=== PATIENT | male | born 1965 | race American Indian/Alaskan Native ===

== ENCOUNTER 2019-01-05 16:29 | Emergency (ER) | payer SELFPAY ==
[2019-01-05 16:36] VITALS: BP 147/83
[2019-01-05] MEDS ORDERED: BOOSTRIX IM ONE (16:47)
--- NOTE | 2019-01-05 16:47 | Emergency Department Report ---
Blank Doc - Documentation Documentation: 53-year-old male that presents with left tib-fib abrasions. Unsure about teta nus vaccines. This initial assessment/diagnostic orders/clinical plan/treatment(s) is/are subject to change based on patient's health status, clinical progression and re- assessment by fellow clinical providers in the ED. Further treatment and workup at subsequent clinical providers discretion. Patient/guardians urged not to elope from the ED as their condition may be serious if not clinically assessed and managed. Initial orders include: 1- Patient sent to [facility] for further evaluation and treatment 2- tetanus 3- xrays
[2019-01-05] MEDS ORDERED: PERCOCET 5/325 PO ONE (17:43)
--- NOTE | 2019-01-05 17:59 | XRay Report ---
LEFT FOOT 3 VIEWS INDICATION: pain. Injury on Thursday COMPARISON: No relevant prior imaging study available. FINDINGS: There are obliquely oriented fracture through the distal shafts of the second, third, fourth, and fif th metatarsals with mild displacement/angulation. There appear to be subtle fractures in the proximal shafts of the third and fourth metatarsals as well. No additional fractures are identified. IMPRESSION: 1. Second-fifth metatarsal fractures as above. AP AND LATERAL VIEWS LEFT TIBIA AND FIBULA INDICATION: pain. Injury on Thursday COMPARISON: No relevant prior imaging study available. FINDINGS: No acute, displaced fracture or dislocation is seen. No focal soft tissue swelling. IMPRESSION: 1. No acute findings. Signer Name: Mj Brown MD Signed: 01/05/2019 5:55 PM Workstation Name: [id number]
--- NOTE | 2019-01-05 18:17 | Emergency Department Report ---
ED Back Pain/Injury HPI - General Chief Complaint: Extremity Injury, Lower Stated Complaint: INJURED LEG Time Seen by Provider: 01/05/19 16:46 Source: patient Limitations: No Limitations - History of Present Illness Initial Comments: 53 YO AA MALE COMES TO ER WITH L FOOT PAIN. HE STATES SOMETHING HIT HIS FOOT. THIS OCCURRED SEVERAL DAYS AGO. AMBULATORY TO ER. CO OF MINIMAL PAIN IT WAS THE SWELLING ACROSS THE FOOT THAT WORRIED HIM -: days(s) Similar Symptoms Previously: No Severity: mild Improves With: immobilization Worsens With: movement Associated Symptoms: denies other symptoms - Related Data Previous Rx's Medication Instructions Recorded Last Taken Type Ibuprofen [Motrin] 800 mg PO Q8HR PRN #30 tablet 01/05/19 Unknown Rx traMADol [Ultram] 50 mg PO Q6HR PRN #10 tablet 01/05/19 Unknown Rx Allergies Allergy/AdvReac Type Severity Reaction Status Date / Time No Known Allergies Allergy Unverified 01/05/19 16:31 ED Review of Systems ROS: Stated complaint: INJURED LEG Other details as noted in HPI Comment: All other systems reviewed and negative ED Past Medical Hx - Past Medical History Medical history: no medical history Surgical history: no surgical history ED Back Pain Physical Exam - Exam General: Vital signs noted. No distress. Alert and acting appropriately. Back/Abdomen: No Abdominal Tenderness, No Perithoracic Tenderness, No Perilumbar Tenderness, No Sacroiliac Tenderness, No Flank Tenderness, No Straight Leg Raise Pain Neuro: Yes Normal Sensation, Yes Normal DTR's, Yes Normal Gait, No Motor Weakness ED Course Vital Signs 01/05/19 16:33 Temperature 98.5 F Pulse Rate 108 H Respiratory 16 Rate Blood Pressure 147/83 O2 Sat by Pulse 98 Oximetry Ed Back Pain Tests - Tests Tests: Abnormal X Rays ED Medical Decision Making - Radiology Data Radiology results: report reviewed, image reviewed - Medical Decision Making XRAY NOTED OCL POST SHORT LEG APPLIED NEUROVASC INTACT BEFORE AND AFTER MIN SWELLING ACROSS TOP OF FOOT ECCHYMOSIS AT BASE OF TOES; BUT CAN MOVE THEM; IN FACT PT AMBULATORY TO ER DP PLUS 2 CRUTCHES MEDICATED FOR PAIN DC HOME WITH ORTHO FOLLOW UP Vital Signs 01/05/19 16:33 Temperature 98.5 F Pulse Rate 108 H Respiratory 16 Rate Blood Pressure 147/83 O2 Sat by Pulse 98 Oximetry - Differential Diagnosis RO FX Critical care attestation.: If time is entered above; I have spent that time in minutes in the direct care of this critically ill patient, excluding procedure time. ED Disposition Clinical Impression: Fractured metatarsal bone, Contusion Disposition: TO HOME OR SELFCARE Is pt being admited?: No Does the pt Need Aspirin: No Condition: Stable Instructions: Foot Fracture in Adults (ED) Additional Instructions: LEAVE SPLINT ON CRUTCHES UNTIL SEEN BY ORTHO FOLLOW UP WITH DR MANCERA WILBER REFERRAL BELOW ICE REST ELEVATED Prescriptions: Ibuprofen [Motrin] 800 mg PO Q8HR PRN #30 tablet PRN Reason: Pain, Moderate (4-6) traMADol [Ultram] 50 mg PO Q6HR PRN #10 tablet PRN Reason: Pain Referrals: ROSEMARY MANCERA MD [Staff Physician] - 3-5 Days Time of Disposition: 18:15
== END 2019-01-05 19:12 | disposition home or self-care (01) ==
LOC: ED 16:29
DX: S92.322A Displaced fracture of second metatarsal bone, left foot, initial encounter for closed fracture (principal); S92.352A Displaced fracture of fifth metatarsal bone, left foot, initial encounter for closed fracture; S90.122A Contusion of left lesser toe(s) without damage to nail, initial encounter; X58.XXXA Exposure to other specified factors, initial encounter; Y93.89 Activity, other specified; Y92.89 Other specified places as the place of occurrence of the external cause; Y99.8 Other external cause status
CPT/HCPCS: 90471; 90715

== ENCOUNTER 2020-08-28 08:38 | Inpatient (IN) | payer OTHER ==
--- NOTE | 2020-08-28 11:25 | XRay Report ---
RIGHT FOOT 3 VIEWS INDICATION / CLINICAL INFORMATION: foot wound worsening. COMPARISON: None available. FINDINGS: Diffuse vascular calcification is present. Mild degenerative changes seen in the first metatarsophala ngeal joint. No other significant skeletal abnormality. No definite evidence of osteomyelitis on this exam Signer Name: Harish Nunn MD FACJami Signed: 08/28/2020 11:20 AM Workstation Name: [email or web address]
[2020-08-28 13:23] LABS: Basophils % (Auto) 0.3 % (0.0-1.8); Eosinophils # (Auto) 0.2 K/mm3 (0.0-0.4); Eosinophils % (Auto) 3.7 % (0.0-4.3); Hematocrit 35.8 % (35.5-45.6); Lymphocytes # (Auto) 1.6 K/mm3 (1.2-5.4); Lymphocytes % (Auto) 25.9 % (13.4-35.0); Mean Corpuscular HGB Conc 34 % (32-34); Mean Corpuscular Volume 85 fl (84-94); Monocytes # (Auto) 0.6 K/mm3 (0.0-0.8); Monocytes % (Auto) 8.9 % (0.0-7.3); Platelet Count 275 K/mm3 (140-440); Red Blood Count 4.19 M/mm3 (3.65-5.03); Red Cell Distribution Width 13.6 % (13.2-15.2)
[2020-08-28] MEDS ORDERED: CLINDAMYCIN 600 MG/50 mL 600 MG/50 ML BAG IV ONE ×2 (13:23→17:00)
[2020-08-28] MEDS ORDERED: LACTATED RINGERS 1,000 ML IV ONE (13:23)
[2020-08-28] MEDS ORDERED: MORPHINE 4 MG/1 ML INJ IV ONE ×2 (13:23→17:00)
--- NOTE | 2020-08-28 13:24 | Emergency Department Report ---
ED General Adult HPI - General Chief complaint: Wound/Laceration Stated complaint: RIGHT FOOT INJURY PUI?: No Time Seen by Provider: 08/28/20 13:09 Source: patient, RN notes reviewed, old records reviewed Mode of arrival: Ambulatory Limitations: Physical Limitation - History of Present Illness Initial comments: The patient was evaluated in the emergency department for symptoms described in the history of present illness. He/she was evaluated in the context of the global COVID-19 pandemic, which necessitated consideration that the patient might be at risk for infection with the virus that causes COVID-19. Institutional protocols and algorithms that pertain to the evaluation of patients at risk for COVID-19 are in a state of rapid change based on information released by regulatory bodies including the CDC and federal and state organizations. These policies and algorithms were followed during the patient's care in the emergency department. Please note that these policies, procedures and recommendations changed on a rapid basis. The patient is a 54-year-old gentleman. His past history includes poorly controlled diabetes, hemoglobin A1c was 10.9 in 2019. The patient was recently seen at this hospital for presumed diabetic foot infection in the beginning of the month. He was offered admission, which he declined, and was discharged with Bactrim and Levaquin. He presents to the ER with a complaint of painful nontraumatic blackened toe, on the right foot. The patient denies headache, neck pain, chest pain, abdominal pain, shortness of breath, fevers and chills. He does have some throbbing aching pain on the dorsal aspect of the right foot, as well as a blackened right toe. He denies additional injuries and complaints. He feels like his toe has been discolored for a few days to about a week and a half. It is constant, does not radiate anywhere, and does not have exacerbating or relieving factors. -: days(s), week(s) Location: right, lower extremity (Right fourth toe) Severity scale (0 -10): 10 Quality: other Consistency: other Improves with: other Worsens with: other Associated Symptoms: other - Related Data Previous Rx's Medication Instructions Recorded Last Taken Type Ibuprofen [Motrin] 800 mg PO Q8HR PRN #30 tablet 01/05/19 Unknown Rx traMADoL [Ultram] 50 mg PO Q6HR PRN #10 tablet 01/05/19 Unknown Rx Ibuprofen [Motrin 800 MG tab] 800 mg PO Q8HR PRN #20 tablet 08/14/20 Unknown Rx Sulfamethoxazole/Trimethoprim 1 each PO BID #20 tablet 08/14/20 Unknown Rx [Bactrim DS TAB] levoFLOXacin [Levaquin] 750 mg PO QDAY #10 tablet 08/14/20 Unknown Rx oxyCODONE /ACETAMINOPHEN [Percocet 1 tab PO Q6HR PRN #12 tablet 08/14/20 Unknown Rx 5/325] Allergies Allergy/AdvReac Type Severity Reaction Status Date / Time No Known Allergies Allergy Unverified 01/05/19 16:31 ED Review of Systems ROS: Stated complaint: RIGHT FOOT INJURY Other details as noted in HPI Constitutional: denies: fever Eyes: denies: eye discharge ENT: denies: epistaxis Respiratory: denies: cough Cardiovascular: denies: chest pain Gastrointestinal: denies: abdominal pain Musculoskeletal: joint swelling, arthralgia, myalgia Skin: rash, lesions, change in color Neurological: denies: weakness Psychiatric: anxiety Hematological/Lymphatic: denies: easy bleeding ED Past Medical Hx - Past Medical History Hx Diabetes: Yes - Surgical History Past Surgical History?: No - Social History Smoking Status: Current Some Day Smoker Substance Use Type: None (Denies illicit drug use) - Medications Home Medications: Home Medications Medication Instructions Recorded Confirmed Last Taken Type Ibuprofen [Motrin] 800 mg PO Q8HR PRN #30 tablet 01/05/19 Unknown Rx traMADoL [Ultram] 50 mg PO Q6HR PRN #10 tablet 01/05/19 Unknown Rx Ibuprofen [Motrin 800 MG tab] 800 mg PO Q8HR PRN #20 tablet 08/14/20 Unknown Rx Sulfamethoxazole/Trimethoprim 1 each PO BID #20 tablet 08/14/20 Unknown Rx [Bactrim DS TAB] levoFLOXacin [Levaquin] 750 mg PO QDAY #10 tablet 08/14/20 Unknown Rx oxyCODONE /ACETAMINOPHEN [Percocet 1 tab PO Q6HR PRN #12 tablet 08/14/20 Unknown Rx 5/325] ED Physical Exam - General Limitations: No Limitations General appearance: alert, anxious - Head Head exam: Present: atraumatic, normocephalic - Eye Eye exam: Present: normal appearance, EOMI. Absent: nystagmus - ENT ENT exam: Present: normal exam, normal orophraynx, mucous membranes moist, normal external ear exam - Neck Neck exam: Present: normal inspection, full ROM. Absent: tenderness, meningismus - Respiratory Respiratory exam: Present: normal lung sounds bilaterally. Absent: respiratory distress, wheezes, rales, rhonchi, stridor, decreased breath sounds - Cardiovascular Cardiovascular Exam: Present: regular rate, normal rhythm, normal heart sounds. Absent: bradycardia, tachycardia, irregular rhythm, systolic murmur, diastolic murmur, rubs, gallop - GI/Abdominal GI/Abdominal exam: Present: soft. Absent: distended, tenderness, guarding, rebound, rigid, pulsatile mass - Rectal Rectal exam: Present: deferred - Extremities Exam Extremities exam: Present: full ROM, tenderness (There is a necrotic and well demarcated right fourth toe, which is circumferentially necrotic. The dorsal aspect of the right foot is minimally tender. The compartments are soft. 1+ dorsalis pedis pulses noted.), other (2+ radial pulses noted in bilateral upper extremities. 1+ dorsalis pedis pulse noted in the left lower extremity. There is no long bony tenderness, and the pelvis is stable.) - Back Exam Back exam: Present: normal inspection. Absent: tenderness, CVA tenderness (R), CVA tenderness (L), paraspinal tenderness, vertebral tenderness - Neurological Exam Neurological exam: Present: alert, normal gait, other (No facial droop. Tongue midline. Extraocular movements intact bilaterally. Facial sensation intact to light touch in V1, V2, V3 distribution bilaterally. 5 and a 5 strength in 4 extremities. Sensation intact to light touch in 4 extremities.) - Psychiatric Psychiatric exam: Present: normal affect, normal mood, anxious - Skin Skin exam: Present: warm ED Course Vital Signs 08/28/20 08/28/20 08/28/20 08:49 12:52 13:00 Temperature 98.4 F Pulse Rate 92 H 71 75 Respiratory 18 19 19 Rate Blood Pressure 130/73 123/72 Blood Pressure 97/64 [Right] O2 Sat by Pulse 98 98 98 Oximetry 08/28/20 08/28/20 08/28/20 13:16 13:30 16:14 Temperature Pulse Rate 73 68 76 Respiratory 17 13 15 Rate Blood Pressure 123/72 127/82 127/82 Blood Pressure [Right] O2 Sat by Pulse 98 100 100 Oximetry 08/28/20 08/28/20 08/28/20 16:16 16:30 16:46 Temperature Pulse Rate 67 66 71 Respiratory 14 15 13 Rate Blood Pressure 127/82 134/75 127/82 Blood Pressure [Right] O2 Sat by Pulse 99 100 98 Oximetry 08/28/20 08/28/20 08/28/20 17:00 17:16 17:30 Temperature Pulse Rate 70 84 107 H Respiratory 14 18 20 Rate Blood Pressure 123/73 123/73 141/72 Blood Pressure [Right] O2 Sat by Pulse 99 99 99 Oximetry 08/28/20 08/28/20 17:46 18:00 Temperature Pulse Rate 89 81 Respiratory 21 18 Rate Blood Pressure 141/72 109/55 Blood Pressure [Right] O2 Sat by Pulse 99 99 Oximetry - Consultations Consultation #1: 08/28/20 18:27 Discussed history, physical, pertinent imaging studies with vascular surgeon on- call, Dr. Pagan. His group will follow in consultation and make further recommendations. It is advised that systemic anticoagulation be withheld at this time ED Medical Decision Making - Lab Data Result diagrams: 08/28/20 13:10 08/28/20 13:10 Vital Signs 08/28/20 08/28/20 08:49 12:52 Temperature 98.4 F Pulse Rate 92 H 71 Respiratory 18 19 Rate Blood Pressure 130/73 Blood Pressure 97/64 [Right] O2 Sat by Pulse 98 98 Oximetry Lab Results 08/28/20 08/28/20 Range/Units 13:10 13:10 WBC 6.3 (4.5-11.0) K/mm3 RBC 4.19 (3.65-5.03) M/mm3 Hgb 12.0 (11.8-15.2) gm/dl Hct 35.8 (35.5-45.6) % MCV 85 (84-94) fl MCH 29 (28-32) pg MCHC 34 (32-34) % RDW 13.6 (13.2-15.2) % Plt Count 275 (140-440) K/mm3 Lymph % (Auto) 25.9 (13.4-35.0) % Lamb % (Auto) 8.9 H (0.0-7.3) % Eos % (Auto) 3.7 (0.0-4.3) % Baso % (Auto) 0.3 (0.0-1.8) % Lymph # (Auto) 1.6 (1.2-5.4) K/mm3 Lamb # (Auto) 0.6 (0.0-0.8) K/mm3 Eos # (Auto) 0.2 (0.0-0.4) K/mm3 Baso # (Auto) 0.0 (0.0-0.1) K/mm3 Seg Neutrophils % 61.2 (40.0-70.0) % Seg Neutrophils # 3.8 (1.8-7.7) K/mm3 Sodium 135 L (137-145) mmol/L Potassium 4.3 (3.6-5.0) mmol/L Chloride 99.3 (98-107) mmol/L Carbon Dioxide 27 (22-30) mmol/L Anion Gap 13 mmol/L BUN 17 (9-20) mg/dL Creatinine 1.0 (0.8-1.3) mg/dL Estimated GFR > 60 ml/min BUN/Creatinine Ratio 17 % Glucose 233 H (75-100) mg/dL Calcium 9.1 (8.4-10.2) mg/dL Total Bilirubin 0.30 (0.1-1.2) mg/dL AST 13 (5-40) units/L ALT 13 (7-56) units/L Alkaline Phosphatase 101 (35-129) units/L Total Protein 7.1 (6.3-8.2) g/dL Albumin 3.9 (3.9-5) g/dL Albumin/Globulin Ratio 1.2 % - Radiology Data Radiology results: pending, report reviewed, image reviewed RIGHT FOOT 3 VIEWS INDICATION / CLINICAL INFORMATION: foot wound worsening. COMPARISON: None available. FINDINGS: Diffuse vascular calcification is present. Mild degenerative changes seen in the first metatarsophalangeal joint. No other significant skeletal abnormality. No definite evidence of osteomyelitis on this exam Signer Name: Harish Nunn MD FACR Signed: 08/28/2020 10:20 AM Workstation Name: [id number] Right foot-3 views INDICATION: pain, swelling, diabetic. COMPARISON: None. IMPRESSION: No acute osseous abnormality or bone destruction to suggest osteomyelitis. No focal soft tissue wound, subcutaneous gas, or focal area of swelling. Normal alignment. Monckeberg-type vascular calcifications are present typical of diabetes. Signer Name: Jose Price MD Signed: 08/13/2020 8:50 PM Workstation Name: [id number] [address] [address] Vascular Lab Report Signed Patient: VALE BAUER MR#: [id number] : 1965 Acct:[id number] Age/Sex: 54 / M ADM Date: 08/28/20 Loc: 3A A379-[address]: MIGNON LAZCANO MD Ordering Physician: ELIE VELAZQUEZ MD Date of Service: 08/28/20 Procedure(s): VL arterial duplex LE RT Accession Number(s): [id number] cc: ELIE VELAZQUEZ MD DUPLEX DOPPLER LOWER EXTREMITY ARTERIAL, RIGHT INDICATION: right toe gangrene. TECHNIQUE: Arterial duplex examination of both lower extremities performed using B-mode, color flow and spectral Doppler assessment. FINDINGS: RIGHT: Common Femoral Artery: PSV 96.2 cm/sec. Triphasic waveform. Proximal SFA: PSV 71.7 cm/sec. Triphasic waveform. Mid SFA: PSV 83.9 cm/sec. Triphasic waveform. Distal SFA: PSV 83.9 cm/sec. Triphasic waveform. Popliteal artery: PSV 99.8 cm/sec. Triphasic waveform. Posterior tibial artery: PSV 37.6 cm/sec. Biphasic waveform. Dorsalis Pedis Artery: Occluded Additional findings: There is questionable incidental nonocclusive likely chronic DVT along the mid portion of the femoral vein. IMPRESSION: 1. Occlusion of the right dorsalis pedis artery without other signi ficant abnormalities of the right lower 70 arteries. 2. Likely chronic nonocclusive DVT involving the femoral vein. Signer Name: Andrés Solis MD Signed: 08/28/2020 5:54 PM Workstation Name: [email or web address] Transcribed By: [place] Dictated By: Andrés Solis MD Electronically Authenticated By: Andrés law MD Signed Date/Time: 08/28/201753 DD/ [address] [address] Vascular Lab Report Signed Patient: VALE BAUER MR#: [id number] : 1965 Acct:[id number] Age/Sex: 54 / M ADM Date: 08/28/20 Loc: 3A A379-[address]: MIGNON LAZCANO MD Ordering Physician: ELIE VELAZQUEZ MD Date of Service: 08/28/20 Procedure(s): VL arterial duplex LE RT Accession Number(s): [id number] cc: ELIE VELAZQUEZ MD DUPLEX DOPPLER LOWER EXTREMITY ARTERIAL, RIGHT INDICATION: right toe gangrene. TECHNIQUE: Arterial duplex examination of both lower extremities performed using B-mode, color flow and spectral Doppler assessment. FINDINGS: RIGHT: Common Femoral Artery: PSV 96.2 cm/sec. Triphasic waveform. Proximal SFA: PSV 71.7 cm/sec. Triphasic waveform. Mid SFA: PSV 83.9 cm/sec. Triphasic waveform. Distal SFA: PSV 83.9 cm/sec. Triphasic waveform. Popliteal artery: PSV 99.8 cm/sec. Triphasic waveform. Posterior tibial artery: PSV 37.6 cm/sec. Biphasic waveform. Dorsalis Pedis Artery: Occluded Additional findings: There is questionable incidental nonocclusive likely chronic DVT along the mid portion of the femoral vein. IMPRESSION: 1. Occlusion of the right dorsalis pedis artery without other significant abnormalities of the right lower 70 arteries. 2. Likely chronic nonocclusive DVT involving the femoral vein. Signer Name: Andrés Solis MD Signed: 08/28/2020 5:54 PM Workstation Name: [email or web address] Transcribed By: [place] Dictated By: Andrés Solis MD Electronically Authenticated By: Andrés Solis MD Signed Date/Time: 08/28/20 9394 - Medical Decision Making Differential diagnosis, including but not limited to: Peripheral artery disease, uncontrolled diabetes, dry gangrene, diabetic wound, osteomyelitis Assessment and plan: 54-year-old gentleman, with obvious dry gangrene of the right fourth toe, with clear demarcation, foot is warm, pulses difficult to appreciate, has a hemoglobin A1c of 10.9 in 2019, most likely experiencing wound secondary to poorly controlled diabetes, and presumed peripheral artery disease. Place patient on lunchroom monitor, start IV fluids, and clindamycin for skin and soft tissue coverage. X-ray from today, x-ray from 2 weeks ago reviewed and appreciated, obtain appropriate laboratory studies, lactic acid, and blood cultures. Administer insulin for mild hyperglycemia, admit to the medical service with general surgery to follow in consultation. Patient is amenable to this plan of care. General surgeon, Dr. Finney, will follow in consultation. Hospital physician, Dr. Ita Lazcano to admit to [facility] Critical care attestation.: If time is entered above; I have spent that time in minutes in the direct care of this critically ill patient, excluding procedure time. ED Disposition Clinical Impression: Necrosis of toe, Hyperglycemia, PAD (peripheral artery disease) Disposition: OP ADMIT IP TO THIS HOSP Is pt being admited?: Yes Does the pt Need Aspirin: No Condition: Good
[2020-08-28 13:46] LABS: Alanine Aminotransferase 13 units/L (7-56); Albumin 3.9 g/dL (3.9-5); BUN/Creatinine Ratio 17; Blood Urea Nitrogen 17 mg/dL (9-20); Calcium 9.1 mg/dL (8.4-10.2); Hemolysis Index 2
[2020-08-28] MEDS ORDERED: INSULIN REGULAR, HUMAN 100 UNITS/1 ML IV ONE ×2 (13:48→17:00)
[2020-08-28 17:16] LABS: C-Reactive Protein 0.7 mg/dL (0.00-1.30)
--- NOTE | 2020-08-28 17:59 | Vascular Lab Report ---
DUPLEX DOPPLER LOWER EXTREMITY ARTERIAL, RIGHT INDICATION: right toe gangrene. TECHNIQUE: Arterial duplex examination of both lower extremities performed using B-mode, color flow and spectral Doppler assessment. FINDINGS: RIGHT: Common Femoral Artery: PSV 96.2 cm/sec. Triphasic waveform. Proximal SFA: PSV 71.7 cm/sec. Triphasic waveform. Mid SFA: PSV 83.9 cm/sec. Triphasic waveform. Distal SFA: PSV 83.9 cm/sec. Triphasic waveform. Popliteal artery: PSV 99.8 cm/sec. Triphasic waveform. Posterior tibial artery: PSV 37.6 cm/sec. Biphasic waveform. Dorsalis Pedis Artery: Occluded Additional findings: There is questionable incidental nonocclusive likely chronic DVT along the mid p ortion of the femoral vein. IMPRESSION: 1. Occlusion of the right dorsalis pedis artery without other significant abnormalities of the right lower 70 arteries. 2. Likely chronic nonocclusive DVT involving the femoral vein. Signer Name: Andrés Solis MD Signed: 08/28/2020 5:54 PM Workstation Name[id number]
--- NOTE | 2020-08-28 20:18 | Consultation ---
History of Present Illness Consult date: 08/28/20 - History of present illness History of present illness: 54 year old male presented to ED with right 4th to pain and skin changes to black that had progressed over the last three weeks. Patient believes that it started when he noticed that his toes were pinching in his steel toed boots. Patient has history of peripheral neuropathy in his feet secondary to diabetes and says that his sensation is unchanged. Patient had a Doppler study that showed occlusion of the right dorsalis pedis artery. He was started on a course of antibiotics earlier in the month after being seen at this hospital and he was discharged after refusing admission. Past History Past Medical History: diabetes Past Surgical History: No surgical history Social history: smoking Medications and Allergies Allergies Allergy/AdvReac Type Severity Reaction Status Date / Time No Known Allergies Allergy Unverified 01/05/19 16:31 Home Medications Medication Instructions Recorded Confirmed Last Taken Type Ibuprofen [Motrin] 800 mg PO Q8HR PRN #30 tablet 01/05/19 Unknown Rx traMADoL [Ultram] 50 mg PO Q6HR PRN #10 tablet 01/05/19 Unknown Rx Ibuprofen [Motrin 800 MG tab] 800 mg PO Q8HR PRN #20 tablet 08/14/20 Unknown Rx Sulfamethoxazole/Trimethoprim 1 each PO BID #20 tablet 08/14/20 Unknown Rx [Bactrim DS TAB] levoFLOXacin [Levaquin] 750 mg PO QDAY #10 tablet 08/14/20 Unknown Rx oxyCODONE /ACETAMINOPHEN [Percocet 1 tab PO Q6HR PRN #12 tablet 08/14/20 Unknown Rx 5/325] Review of Systems All systems: negative - Muskuloskeletal right: foot pain Exam Vital Signs Temp Pulse Resp BP Pulse Ox 98.4 F 92 H 18 97/64 98 08/28/20 08:49 08/28/20 08:49 08/28/20 08:49 08/28/20 08:49 08/28/20 08:49 - General physical appearance Positive: well developed, well nourished, no distress, moderate pain - Respiratory Positive: normal expansion, normal respiratory effort - Cardiovascular Heart Sounds: Present: S1 & S2 - Extremities Extremities: abnormal Extremity abnormal: other (right 4th toe black with distinct demarcation and dry gangrene hardening of the entire toe down to the joint. toe is insensate. remainder of foot is warm with slow capillary refill. no palpable pulse) Results - Labs 08/28/20 13:10 08/28/20 13:10 Abnormal lab results 08/28/20 08/28/20 08/28/20 Range/Units 13:10 13:10 15:59 [place] % (Auto) 8.9 H (0.0-7.3) % Sodium 135 L (137-145) mmol/L Glucose 233 H (75-100) mg/dL Hemoglobin A1c 9.1 H (4-6) % Diabetes panel 08/28/20 08/28/20 Range/Units 13:10 15:59 Sodium 135 L (137-145) mmol/L Potassium 4.3 (3.6-5.0) mmol/L Chloride 99.3 (98-107) mmol/L Carbon Dioxide 27 (22-30) mmol/L BUN 17 (9-20) mg/dL Creatinine 1.0 (0.8-1.3) mg/dL Glucose 233 H (75-100) mg/dL Hemoglobin A1c 9.1 H (4-6) % Calcium 9.1 (8.4-10.2) mg/dL AST 13 (5-40) units/L ALT 13 (7-56) units/L Alkaline Phosphatase 101 (35-129) units/L Total Protein 7.1 (6.3-8.2) g/dL Albumin 3.9 (3.9-5) g/dL Calcium panel 08/28/20 Range/Units 13:10 Calcium 9.1 (8.4-10.2) mg/dL Albumin 3.9 (3.9-5) g/dL Pituitary panel 08/28/20 Range/Units 13:10 Sodium 135 L (137-145) mmol/L Potassium 4.3 (3.6-5.0) mmol/L Chloride 99.3 (98-107) mmol/L Carbon Dioxide 27 (22-30) mmol/L BUN 17 (9-20) mg/dL Creatinine 1.0 (0.8-1.3) mg/dL Glucose 233 H (75-100) mg/dL Calcium 9.1 (8.4-10.2) mg/dL Adrenal panel 08/28/20 Range/Units 13:10 Sodium 135 L (137-145) mmol/L Potassium 4.3 (3.6-5.0) mmol/L Chloride 99.3 (98-107) mmol/L Carbon Dioxide 27 (22-30) mmol/L BUN 17 (9-20) mg/dL Creatinine 1.0 (0.8-1.3) mg/dL Glucose 233 H (75-100) mg/dL Calcium 9.1 (8.4-10.2) mg/dL Total Bilirubin 0.30 (0.1-1.2) mg/dL AST 13 (5-40) units/L ALT 13 (7-56) units/L Alkaline Phosphatase 101 (35-129) units/L Total Protein 7.1 (6.3-8.2) g/dL Albumin 3.9 (3.9-5) g/dL Assessment and Plan 54 year old diabetic male with dry gangrene of the right fourth toe. Afebrile and stable. No leukocytosis. Patient has peripheral vascular disease seen on Doppler, and peripheral neuropathy secondary to diabetes. Patient's toe is not salvageable and will likely need to be amputated at some point. I personally do not perform amputations. will consult vascular surgery for assessment of peripheral circulation and evaluation for possible revascularization, and possible amputation.
[2020-08-29] MEDS ORDERED: IBUPROFEN 800 MG TAB PO PRN (01:30)
[2020-08-29] MEDS ORDERED: ACETAMINOPHEN 325 MG TAB PO PRN (01:31)
[2020-08-29] MEDS ORDERED: METOCLOPRAMIDE 10 MG/2 ML INJ IV PRN (01:31)
[2020-08-29] MEDS ORDERED: ONDANSETRON 4 MG/2 ML INJ IV PRN (01:31)
[2020-08-29] MEDS ORDERED: VANCOMYCIN PHARMACY TO DOSE IV SCH (02:00)
[2020-08-29] MEDS: AMPICILLIN/SULBACTA 3GM/100ML 3 GM/100 ML BAG IV SCH ×4 (02:26→17:10)
[2020-08-29] MEDS ORDERED: VANCOMYCIN 1,500 MG in SODIUM CHLORIDE 0.9% 500 ML 500 ML IV ONE (03:05)
[2020-08-29] MEDS: SODIUM CHLORIDE 0.9% 1000 ML 1,000 ML IV SCH ×3 (03:29→22:48)
[2020-08-29] MEDS: oxyCODONE /ACETAMINOPHEN 5-325MG TAB PO PRN ×3 (03:58→20:31)
--- NOTE | 2020-08-29 06:27 | History and Physical Report ---
History of Present Illness Date of examination: 08/28/20 Date of admission: 08/28/20 13:57 Chief complaint: Right foot fourth toe infection x2 weeks History of present illness: 54-year-old -[place] male comes in for right foot infection involving the right fourth toe. Black in color. Patient was recently seen in the emergency room but declined admission. Was discharged on Levaquin and Bactrim. The right fourth toe was worsened and is dark black in color and looked gangrenous the whole fourth toe on the right foot. Pulses are diminished in the right foot. Patient is a smoker and recently 1 month ago. Patient also has uncontrolled diabetes. Noncompliant with medications. No hypertension. Patient has not followed up with any vascular surgeon. His hemoglobin A1c was 10.9 in 2019. No fever or chills. Claudication pain present. - Past Medical History --Diabetes: Yes - Surgical History Past Surgical History?: No - Social History Smoking Status: Current Some Day Smoker Substance Use Type: None (Denies illicit drug use) Family history DM --Review of System ROS: Stated complaint: RIGHT FOOT INJURY Other details as noted in HPI Constitutional: denies: fever Eyes: denies: eye discharge ENT: denies: epistaxis Respiratory: denies: cough Cardiovascular: denies: chest pain Gastrointestinal: denies: abdominal pain Musculoskeletal: joint swelling, arthralgia, myalgia Skin: rash, lesions, change in color Neurological: denies: weakness Psychiatric: anxiety Hematological/Lymphatic: denies: easy bleeding Past History Past Medical History: diabetes Past Surgical History: No surgical history Social history: smoking Medications and Allergies Allergies Allergy/AdvReac Type Severity Reaction Status Date / Time No Known Allergies Allergy Unverified 01/05/19 16:31 Home Medications Medication Instructions Recorded Confirmed Last Taken Type Ibuprofen [Motrin] 800 mg PO Q8HR PRN #30 tablet 01/05/19 Unknown Rx traMADoL [Ultram] 50 mg PO Q6HR PRN #10 tablet 01/05/19 Unknown Rx Ibuprofen [Motrin 800 MG tab] 800 mg PO Q8HR PRN #20 tablet 08/14/20 Unknown Rx Sulfamethoxazole/Trimethoprim 1 each PO BID #20 tablet 08/14/20 Unknown Rx [Bactrim DS TAB] levoFLOXacin [Levaquin] 750 mg PO QDAY #10 tablet 08/14/20 Unknown Rx oxyCODONE /ACETAMINOPHEN [Percocet 1 tab PO Q6HR PRN #12 tablet 08/14/20 Unknown Rx 5/325] Active Meds: Active Medications Acetaminophen (Acetaminophen 325 Mg Tab) 650 mg PO Q4H PRN PRN Reason: Pain MILD(1-3)/Fever >100.5/[place] Famotidine (Famotidine 20 Mg/2 Ml Inj) 20 mg IV BID NOAH Hydromorphone HCl (Hydromorphone 1 Mg/1 Ml Inj) 0.5 mg IV Q3H PRN PRN Reason: Pain , Severe (7-10) Sodium Chloride (Nacl 0.9% 1000 Ml) 1,000 mls @ 75 mls/hr IV DIRECT NOAH Last Admin: 08/29/20 03:29 Dose: 75 mls/hr Documented by: Ampicillin Sodium/Sulbactam Sodium (Unasyn/Ns 3 Gm/100 Ml) 3 gm in 100 mls @ 100 mls/hr IV Q6HR NOAH; Protocol Last Admin: 08/29/20 05:35 Dose: 100 mls/hr Documented by: Vancomycin HCl 1,250 mg/ (Sodium Chloride) 275 mls @ 166.667 mls/hr IV Q12H NOAH Ibuprofen (Ibuprofen 800 Mg Tab) 800 mg PO Q8H PRN PRN Reason: Pain, Moderate (4-6) Insulin Human Lispro (Insulin Lispro 100 Unit/Ml) 0 unit SUB-Q ACHS NOAH; Protocol Metoclopramide HCl (Metoclopramide 10 Mg/2 Ml Inj) 10 mg IV Q6H PRN PRN Reason: Nausea And Vomiting Ondansetron HCl (Ondansetron 4 Mg/2 Ml Inj) 4 mg IV Q8H PRN PRN Reason: Nausea And Vomiting Last Admin: 08/29/20 03:58 Dose: 4 mg Documented by: Oxycodone/Acetaminophen (Oxycodone /Acetaminophen 5-325mg Tab) 1 tab PO Q6H PRN PRN Reason: Pain, Moderate (4-6) Last Admin: 08/29/20 03:58 Dose: 1 tab Documented by: Sodium Chloride (Sodium Chloride 0.9% 10 Ml Flush Syringe) 10 ml IV BID NOAH Sodium Chloride (Sodium Chloride 0.9% 10 Ml Flush Syringe) 10 ml IV PRN PRN PRN Reason: LINE FLUSH Exam - Constitutional Vitals: Temp Pulse Resp BP Pulse Ox 97.8 F 86 20 134/61 98 08/28/20 19:24 08/28/20 19:24 08/28/20 19:24 08/28/20 19:24 08/28/20 19:24 General appearance: Present: no acute distress, well-nourished - EENT Eyes: Present: PERRL ENT: hearing intact, clear oral mucosa - Neck Neck: Present: supple, normal ROM - Respiratory Respiratory effort: normal Respiratory: bilateral: CTA - Cardiovascular Heart rate: 78 Rhythm: regular Heart Sounds: Present: S1 & S2. Absent: rub, click - Extremities Extremities: pulses symmetrical, No edema, abnormal (Right fourth toe is black and gangrenous) Extremity abnormal: other (Right fourth toe is black and gangrenous) Peripheral Pulses: within normal limits - Abdominal General gastrointestinal: Present: soft, non-tender, non-distended, normal bowel sounds Male genitourinary: Present: normal - Integumentary Integumentary: Present: clear, warm, dry - Musculoskeletal Musculoskeletal: gait normal, strength equal bilaterally - Psychiatric Psychiatric: appropriate mood/affect, intact judgment & insight - Neurologic Neurologic: CNII-XII intact, moves all extremities Results - Labs CBC & Chem 7: 08/28/20 13:10 08/28/20 13:10 Labs: Laboratory Last Values WBC 6.3 K/mm3 (4.5-11.0) 08/28/20 13:10 RBC 4.19 M/mm3 (3.65-5.03) 08/28/20 13:10 Hgb 12.0 gm/dl (11.8-15.2) 08/28/20 13:10 Hct 35.8 % (35.5-45.6) 08/28/20 13:10 MCV 85 fl (84-94) 08/28/20 13:10 MCH 29 pg (28-32) 08/28/20 13:10 MCHC 34 % (32-34) 08/28/20 13:10 RDW 13.6 % (13.2-15.2) 08/28/20 13:10 Plt Count 275 K/mm3 (140-440) 08/28/20 13:10 Lymph % (Auto) 25.9 % (13.4-35.0) 08/28/20 13:10 [place] % (Auto) 8.9 % (0.0-7.3) H 08/28/20 13:10 Eos % (Auto) 3.7 % (0.0-4.3) 08/28/20 13:10 Baso % (Auto) 0.3 % (0.0-1.8) 08/28/20 13:10 Lymph # (Auto) 1.6 K/mm3 (1.2-5.4) 08/28/20 13:10 [place] # (Auto) 0.6 K/mm3 (0.0-0.8) 08/28/20 13:10 Eos # (Auto) 0.2 K/mm3 (0.0-0.4) 08/28/20 13:10 Baso # (Auto) 0.0 K/mm3 (0.0-0.1) 08/28/20 13:10 Seg Neutrophils % 61.2 % (40.0-70.0) 08/28/20 13:10 Seg Neutrophils # 3.8 K/mm3 (1.8-7.7) 08/28/20 13:10 ESR 55 mm/Hr (0-20) 08/28/20 15:59 Sodium 135 mmol/L (137-145) L 08/28/20 13:10 Potassium 4.3 mmol/L (3.6-5.0) 08/28/20 13:10 Chloride 99.3 mmol/L (98-107) 08/28/20 13:10 Carbon Dioxide 27 mmol/L (22-30) 08/28/20 13:10 Anion Gap 13 mmol/L 08/28/20 13:10 BUN 17 mg/dL (9-20) 08/28/20 13:10 Creatinine 1.0 mg/dL (0.8-1.3) 08/28/20 13:10 Estimated GFR > 60 ml/min 08/28/20 13:10 BUN/Creatinine Ratio 17 % 08/28/20 13:10 Glucose 233 mg/dL (75-100) H 08/28/20 13:10 POC Glucose 257 mg/dL (70-105) H 08/28/20 22:10 Hemoglobin A1c 9.1 % (4-6) H 08/28/20 15:59 Lactic Acid 1.30 mmol/L (0.7-2.0) 08/28/20 15:59 Calcium 9.1 mg/dL (8.4-10.2) 08/28/20 13:10 Magnesium 2.10 mg/dL (1.7-2.3) 08/28/20 15:59 Total Bilirubin 0.30 mg/dL (0.1-1.2) 08/28/20 13:10 AST 13 units/L (5-40) 08/28/20 13:10 ALT 13 units/L (7-56) 08/28/20 13:10 Alkaline Phosphatase 101 units/L (35-129) 08/28/20 13:10 Total Creatine Kinase 76 units/L (55-170) 08/28/20 15:59 C-Reactive Protein 0.70 mg/dL (0.00-1.30) 08/28/20 15:59 Total Protein 7.1 g/dL (6.3-8.2) 08/28/20 13:10 Albumin 3.9 g/dL (3.9-5) 08/28/20 13:10 Albumin/Globulin Ratio 1.2 % 08/28/20 13:10 Short CBC 08/28/20 Range/Units 13:10 WBC 6.3 (4.5-11.0) K/mm3 Hgb 12.0 (11.8-15.2) gm/dl Hct 35.8 (35.5-45.6) % Plt Count 275 (140-440) K/mm3 BMP 08/28/20 13:10 Sodium 135 L Potassium 4.3 Chloride 99.3 Carbon Dioxide 27 BUN 17 Creatinine 1.0 Glucose 233 H Calcium 9.1 Cardiac Enzymes 08/28/20 Range/Units 15:59 Total Creatine Kinase 76 (55-170) units/L Liver Function 08/28/20 Range/Units 13:10 Total Bilirubin 0.30 (0.1-1.2) mg/dL AST 13 (5-40) units/L ALT 13 (7-56) units/L Alkaline Phosphatase 101 (35-129) units/L Albumin 3.9 (3.9-5) g/dL Microbiology: Microbiology 08/28/20 15:59 Peripheral/Venous Blood Culture - Preliminary Culture in Progress 08/28/20 15:59 Peripheral/Venous Blood Culture - Preliminary Culture in Progress - Imaging and Cardiology Imaging and Cardiology: X-ray of the foot right side Diffuse vascular calcification mild degenerative changes in the first metatarsophalangeal joint. No other significant skeletal abnormality. No definite areas of osteomyelitis on this exam. Duplex scan right lower extremity. Occlusion of the right dorsalis pedis artery without other significant abnormalities of the right lower extremity arteries. Likely chronic non-occlusive DVT involving the femoral vein. Mas/IV: Voiding Method Toilet Assessment and Plan Advance Directives: Yes (Full code) VTE prophylaxis?: Chemical Plan of care discussed with patient/family: Yes - Patient Problems (1) Gangrene of toe of right foot Current Visit: Yes Status: Acute Plan to address problem: Soap to the right foot is gangrenous Needs amputation Patient started on Unasyn and vancomycin (2) PAD (peripheral artery disease) Current Visit: Yes Status: Chronic Plan to address problem: Patient is a smoker ~1 month ago. Right foot dorsalis pedis is occluded. Bilateral lower extremity duplex scan requested vascular surgery consult requested. (3) Uncontrolled diabetes mellitus Current Visit: Yes Status: Chronic Qualifiers: Diabetes mellitus type: type 2 Plan to address problem: Check hemoglobin A1c Accu-Cheks AC at bedtime High-dose sliding scale coverage (4) Hyponatremia Current Visit: Yes Status: Acute Plan to address problem: Very mild Sodium 135 IV normal saline for now (5) DVT prophylaxis Current Visit: Yes Status: Acute Plan to address problem: On heparin and GI prophylaxis
--- NOTE | 2020-08-29 07:27 | Progress Note ---
Assessment and Plan Assessment and plan: (1) Gangrene of toe of right foot Current Visit: Yes Status: Acute Plan to address problem: Soap to the right foot is gangrenous Needs amputation Patient started on Unasyn and vancomycin (2) PAD (peripheral artery disease) Current Visit: Yes Status: Chronic Plan to address problem: Patient is a smoker ~1 month ago. Right foot dorsalis pedis is occluded. Bilateral lower extremity duplex scan requested vascular surgery consult requested. (3) Uncontrolled diabetes mellitus Current Visit: Yes Status: Chronic Qualifiers: Diabetes mellitus type: type 2 Plan to address problem: Check hemoglobin A1c Accu-Cheks AC at bedtime High-dose sliding scale coverage (4) Hyponatremia Current Visit: Yes Status: Acute Plan to address problem: Very mild Sodium 135 IV normal saline for now (5) DVT prophylaxis Current Visit: Yes Status: Acute Plan to address problem: On heparin and GI prophylaxis 08/29/2020 -Patient has gangrene of the right fourth toes, vascular surgery consulted. Doppler arterial ultrasound of the lower extremities was done and significant for occlusion of the right dorsalis pedis artery. 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 -Patient had vascular work-up and possible amputation. -Patient's hemoglobin A1c is 9.1 which is improved from his previous value of 11.2. Continue with 70/30 20 units twice daily and sliding scale insulin -Hyponatremia; CMP from this morning is pending History Interval history: Patient was seen and evaluated this morning Patient admitted for gangrene of the right fourth toes Patient does not have any complaints Hospitalist Physical - Physical exam Narrative exam: Not in cardiopulmonary distress. The patient appeared well nourished and normally developed. Vital signs as documented. Head exam is unremarkable. No scleral icterus . Neck is without jugular venous distension, thyromegaly, or carotid bruits. Lungs are clear to auscultation. Cardiac exam reveals regular rate and Rhythm. Abdominal exam reveals normal bowel sounds, nontender, no organomegaly. Extremities large discoloration of the right fourth toes CHIEF OPERATOR: Alert and oriented 3. No focal weakness. - Constitutional Vitals: Temp Pulse Resp BP Pulse Ox 98.9 F 89 20 107/82 96 08/29/20 06:25 08/29/20 06:25 08/29/20 06:25 08/29/20 06:25 08/29/20 06:25 General appearance: Present: no acute distress, well-nourished Results - Labs CBC & Chem 7: 08/28/20 13:10 08/28/20 13:10 Labs: Laboratory Last Values WBC 6.3 K/mm3 (4.5-11.0) 08/28/20 13:10 RBC 4.19 M/mm3 (3.65-5.03) 08/28/20 13:10 Hgb 12.0 gm/dl (11.8-15.2) 08/28/20 13:10 Hct 35.8 % (35.5-45.6) 08/28/20 13:10 MCV 85 fl (84-94) 08/28/20 13:10 MCH 29 pg (28-32) 08/28/20 13:10 MCHC 34 % (32-34) 08/28/20 13:10 RDW 13.6 % (13.2-15.2) 08/28/20 13:10 Plt Count 275 K/mm3 (140-440) 08/28/20 13:10 Lymph % (Auto) 25.9 % (13.4-35.0) 08/28/20 13:10 [place] % (Auto) 8.9 % (0.0-7.3) H 08/28/20 13:10 Eos % (Auto) 3.7 % (0.0-4.3) 08/28/20 13:10 Baso % (Auto) 0.3 % (0.0-1.8) 08/28/20 13:10 Lymph # (Auto) 1.6 K/mm3 (1.2-5.4) 08/28/20 13:10 [place] # (Auto) 0.6 K/mm3 (0.0-0.8) 08/28/20 13:10 Eos # (Auto) 0.2 K/mm3 (0.0-0.4) 08/28/20 13:10 Baso # (Auto) 0.0 K/mm3 (0.0-0.1) 08/28/20 13:10 Seg Neutrophils % 61.2 % (40.0-70.0) 08/28/20 13:10 Seg Neutrophils # 3.8 K/mm3 (1.8-7.7) 08/28/20 13:10 ESR 55 mm/Hr (0-20) 08/28/20 15:59 Sodium 135 mmol/L (137-145) L 08/28/20 13:10 Potassium 4.3 mmol/L (3.6-5.0) 08/28/20 13:10 Chloride 99.3 mmol/L (98-107) 08/28/20 13:10 Carbon Dioxide 27 mmol/L (22-30) 08/28/20 13:10 Anion Gap 13 mmol/L 08/28/20 13:10 BUN 17 mg/dL (9-20) 08/28/20 13:10 Creatinine 1.0 mg/dL (0.8-1.3) 08/28/20 13:10 Estimated GFR > 60 ml/min 08/28/20 13:10 BUN/Creatinine Ratio 17 % 08/28/20 13:10 Glucose 233 mg/dL (75-100) H 08/28/20 13:10 POC Glucose 257 mg/dL (70-105) H 08/28/20 22:10 Hemoglobin A1c 9.1 % (4-6) H 08/28/20 15:59 Lactic Acid 1.30 mmol/L (0.7-2.0) 08/28/20 15:59 Calcium 9.1 mg/dL (8.4-10.2) 08/28/20 13:10 Magnesium 2.10 mg/dL (1.7-2.3) 08/28/20 15:59 Total Bilirubin 0.30 mg/dL (0.1-1.2) 08/28/20 13:10 AST 13 units/L (5-40) 08/28/20 13:10 ALT 13 units/L (7-56) 08/28/20 13:10 Alkaline Phosphatase 101 units/L (35-129) 08/28/20 13:10 Total Creatine Kinase 76 units/L (55-170) 08/28/20 15:59 C-Reactive Protein 0.70 mg/dL (0.00-1.30) 08/28/20 15:59 Total Protein 7.1 g/dL (6.3-8.2) 08/28/20 13:10 Albumin 3.9 g/dL (3.9-5) 08/28/20 13:10 Albumin/Globulin Ratio 1.2 % 08/28/20 13:10 Microbiology: Microbiology 08/28/20 15:59 Peripheral/Venous Blood Culture - Preliminary Culture in Progress 08/28/20 15:59 Peripheral/Venous Blood Culture - Preliminary Culture in Progress Mas/IV: Voiding Method Toilet Active Medications - Current Medications Current Medications: Generic Name Dose Route Start Last Admin Trade Name Freq PRN Reason Stop Dose Admin Acetaminophen 650 mg 08/29/20 01:31 Acetaminophen 325 Mg Tab PO Q4H PRN Pain MILD(1-3)/Fever >100.5/[place] Famotidine 20 mg 08/29/20 10:00 Famotidine 20 Mg/2 Ml Inj IV BID [facility] Heparin Sodium (Porcine) 5,000 unit 08/29/20 10:00 Heparin 5,000 Unit/1 Ml Vial SUB-Q Q12HR [facility] Hydromorphone HCl 0.5 mg 08/29/20 01:31 Hydromorphone 1 Mg/1 Ml Inj IV Q3H PRN Pain , Severe (7-10) Sodium Chloride 1,000 mls @ 75 mls/hr 08/29/20 01:45 08/29/20 03:29 Nacl 0.9% 1000 Ml IV 75 mls/hr DIRECT NOAH Administration Ampicillin Sodium/Sulbactam Sodium 3 gm in 100 mls @ 100 mls/hr 08/29/20 02:00 08/29/20 05:35 Unasyn/Ns 3 Gm/100 Ml IV 100 mls/hr Q6HR NOAH Administration Protocol Vancomycin HCl 1,250 mg/ 275 mls @ 166.667 mls/hr 08/29/20 16:00 Sodium Chloride IV Q12H [facility] Ibuprofen 800 mg 08/29/20 01:30 Ibuprofen 800 Mg Tab PO Q8H PRN Pain, Moderate (4-6) Insulin Human Isoph/Insulin Regular 20 unit 08/29/20 08:00 Insulin Nph/Regular 70/30 Inj SUB-Q BIDDIAB [facility] Insulin Human Lispro 0 unit 08/29/20 07:30 Insulin Lispro 100 Unit/Ml SUB-Q ACHS [facility] Protocol Metoclopramide HCl 10 mg 08/29/20 01:31 Metoclopramide 10 Mg/2 Ml Inj IV Q6H PRN Nausea And Vomiting Ondansetron HCl 4 mg 08/29/20 01:31 08/29/20 03:58 Ondansetron 4 Mg/2 Ml Inj IV 4 mg Q8H PRN Administration Nausea And Vomiting Oxycodone/Acetaminophen 1 tab 08/29/20 01:31 08/29/20 03:58 Oxycodone /Acetaminophen 5-325mg Tab PO 1 tab Q6H PRN Administration Pain, Moderate (4-6) Sodium Chloride 10 ml 08/29/20 10:00 Sodium Chloride 0.9% 10 Ml Flush Syringe IV BID NOAH Sodium Chloride 10 ml 08/29/20 01:31 Sodium Chloride 0.9% 10 Ml Flush Syringe IV PRN PRN LINE FLUSH
[2020-08-29] MEDS: FAMOTIDINE 20 MG/2 ML INJ IV SCH ×2 (11:02→22:47)
[2020-08-29] MEDS: HEPARIN 5,000 UNIT/1 ML VIAL SUB-Q SCH ×2 (11:02→22:46)
[2020-08-29] MEDS: INSULIN LISPRO 100 UNIT/ML SUB-Q SCH ×3 (11:03→22:47)
[2020-08-29] MEDS: INSULIN NPH/REGULAR 70/30 INJ SUB-Q SCH (11:03)
--- NOTE | 2020-08-29 13:15 | Consultation ---
History of Present Illness - Reason for Consult Consult date: 08/29/20 PVD with Right Fourth Toe Gangrene Requesting physician: ELIE VELAZQUEZ - History of Present Illness The patient is a 54-year-old male with a history of poorly controlled diabetes and diabetic neuropathy who presented to the emergency department with complaints of his right fourth toe turning black. He had presented approximately 2 weeks ago with complaints of discoloration of the toe and was advised to be admitted however declined and was discharged with oral antibiotics. When he represented this time the toe was completely black. He denies any fever or chills. He denies having any pain. He denies any history of claudication prior to the discoloration of his toe. He believes he may have injured the toe at work unknowingly. He has no additional complaints at this time. Past History Past Medical History: diabetes, other (Erectile dysfunction) Past Surgical History: No surgical history Social history: smoking Medications and Allergies Allergies Allergy/AdvReac Type Severity Reaction Status Date / Time No Known Allergies Allergy Unverified 01/05/19 16:31 Home Medications Medication Instructions Recorded Confirmed Last Taken Type Ibuprofen [Motrin] 800 mg PO Q8HR PRN #30 tablet 01/05/19 Unknown Rx traMADoL [Ultram] 50 mg PO Q6HR PRN #10 tablet 01/05/19 Unknown Rx Ibuprofen [Motrin 800 MG tab] 800 mg PO Q8HR PRN #20 tablet 08/14/20 Unknown Rx Sulfamethoxazole/Trimethoprim 1 each PO BID #20 tablet 08/14/20 Unknown Rx [Bactrim DS TAB] levoFLOXacin [Levaquin] 750 mg PO QDAY #10 tablet 08/14/20 Unknown Rx oxyCODONE /ACETAMINOPHEN [Percocet 1 tab PO Q6HR PRN #12 tablet 08/14/20 Unknown Rx 5/325] Active Meds: Active Medications Acetaminophen (Acetaminophen 325 Mg Tab) 650 mg PO Q4H PRN PRN Reason: Pain MILD(1-3)/Fever >100.5/[place] Famotidine (Famotidine 20 Mg/2 Ml Inj) 20 mg IV BID [facility] Last Admin: 08/29/20 11:02 Dose: 20 mg Documented by: Heparin Sodium (Porcine) (Heparin 5,000 Unit/1 Ml Vial) 5,000 unit SUB-Q Q12HR [facility] Last Admin: 08/29/20 11:02 Dose: 5,000 unit Documented by: Hydromorphone HCl (Hydromorphone 1 Mg/1 Ml Inj) 0.5 mg IV Q3H PRN PRN Reason: Pain , Severe (7-10) Sodium Chloride (Nacl 0.9% 1000 Ml) 1,000 mls @ 75 mls/hr IV DIRECT NOAH Last Admin: 08/29/20 03:29 Dose: 75 mls/hr Documented by: Ampicillin Sodium/Sulbactam Sodium (Unasyn/Ns 3 Gm/100 Ml) 3 gm in 100 mls @ 100 mls/hr IV Q6HR [facility]; Protocol Last Admin: 08/29/20 11:02 Dose: 100 mls/hr Documented by: Vancomycin HCl 1,250 mg/ (Sodium Chloride) 275 mls @ 166.667 mls/hr IV Q12H NOAH Ibuprofen (Ibuprofen 800 Mg Tab) 800 mg PO Q8H PRN PRN Reason: Pain, Moderate (4-6) Insulin Human Isoph/Insulin Regular (Insulin Nph/Regular 70/30 Inj) 20 unit SUB-Q BIDDIAB [facility] Last Admin: 08/29/20 11:03 Dose: Not Given Documented by: Insulin Human Lispro (Insulin Lispro 100 Unit/Ml) 0 unit SUB-Q ACHS [facility]; Protocol Last Admin: 08/29/20 11:03 Dose: Not Given Documented by: Metoclopramide HCl (Metoclopramide 10 Mg/2 Ml Inj) 10 mg IV Q6H PRN PRN Reason: Nausea And Vomiting Ondansetron HCl (Ondansetron 4 Mg/2 Ml Inj) 4 mg IV Q8H PRN PRN Reason: Nausea And Vomiting Last Admin: 08/29/20 03:58 Dose: 4 mg Documented by: Oxycodone/Acetaminophen (Oxycodone /Acetaminophen 5-325mg Tab) 1 tab PO Q6H PRN PRN Reason: Pain, Moderate (4-6) Last Admin: 08/29/20 11:09 Dose: 1 tab Documented by: Sodium Chloride (Sodium Chloride 0.9% 10 Ml Flush Syringe) 10 ml IV BID [facility] Last Admin: 08/29/20 11:10 Dose: 10 ml Documented by: Sodium Chloride (Sodium Chloride 0.9% 10 Ml Flush Syringe) 10 ml IV PRN PRN PRN Reason: LINE FLUSH Exam - Constitutional Vitals: Temp Pulse Resp BP Pulse Ox 98.9 F 89 20 107/82 96 08/29/20 06:25 08/29/20 06:25 08/29/20 06:25 08/29/20 06:25 08/29/20 06:25 General appearance: Present: no acute distress - Respiratory Respiratory effort: normal - Cardiovascular Rhythm: regular - Extremities Extremities: pulses intact (Palpable femoral pulses bilaterally) Extremity abnormal: black (Dry gangrene of the entire dorsal aspect of the right fourth toe with some purulence at the base of the toe on the plantar surface), pulses diminished (Nonpalpable pedal pulses bilaterally) - Abdominal General gastrointestinal: Present: soft, non-tender, non-distended Male genitourinary: Present: deferred - Rectal Rectal Exam: deferred Results - Labs CBC & Chem 7: 08/28/20 13:10 08/28/20 13:10 Labs: Abnormal lab results 08/28/20 08/28/20 08/28/20 Range/Units 13:10 13:10 15:59 [place] % (Auto) 8.9 H (0.0-7.3) % Sodium 135 L (137-145) mmol/L Glucose 233 H (75-100) mg/dL POC Glucose (70-105) mg/dL Hemoglobin A1c 9.1 H (4-6) % 08/28/20 08/29/20 08/29/20 Range/Units 22:10 08:11 12:22 [place] % (Auto) (0.0-7.3) % Sodium (137-145) mmol/L Glucose (75-100) mg/dL POC Glucose 257 H 138 H 164 H (70-105) mg/dL Hemoglobin A1c (4-6) % - Imaging and Cardiology Venous US: other (Right lower extremity arterial duplex with diminished flow in the tibial vessels and possible SFA and popliteal disease) Assessment and Plan The patient is a 54-year-old male with history of poorly controlled diabetes who presented with gangrene of his right fourth toe. He had an arterial duplex that demonstrates diminished tibial flow. The arterial duplex is somewhat poor and it is difficult to tell if he has SFA and popliteal disease however given his diminished tibial flow a diagnostic angiogram is warranted. The patient did not eat today in anticipation of a procedure. After the diagnostic angiogram and possible intervention he will require amputation of his right fourth toe. I will proceed with the amputation on Thursday. I discussed the plan with the patient expressed understanding and agrees with the plan.
[2020-08-29] MEDS: MIDAZOLAM 2 MG/2 ML INJ ONE ×8 (13:42→15:53)
[2020-08-29] MEDS: fentaNYL 100 MCG/2 ML INJ ONE ×8 (13:42→15:53)
[2020-08-29] MEDS: LIDOCAINE (2%) 20 MG/1 ML VIAL 20 ML MDV INFILTRATI ONE ×3 (13:43→13:49)
[2020-08-29] MEDS: HEPARIN/NS 5000 UNIT/500ML 500 ML IR ONE ×2 (13:43→13:44)
[2020-08-29] MEDS: SODIUM CHLORIDE 0.9% 500 ML 500 ML ONE (13:43)
[2020-08-29] MEDS ORDERED: NITROGLYCERIN DRIP 50 MG/250 ML BOTTLE ONE (14:04)
[2020-08-29] MEDS ORDERED: VERAPAMIL 5 MG/2 ML INJ ONE (14:05)
[2020-08-29] MEDS ORDERED: SODIUM CHLORIDE 0.9% 1000 ML 1,000 ML ONE (14:05)
[2020-08-29] MEDS: HEPARIN 10,000 UNITS/10 ML VIAL ONE ×3 (14:06→15:33)
[2020-08-29] MEDS ORDERED: diphenhydrAMINE 50 MG/ML VIAL ONE (14:32)
[2020-08-29] MEDS ORDERED: WATER FOR INJ Sterile (PF) 10 ML ONE (15:08)
[2020-08-29] MEDS: ALTEPLASE 2 MG INJ ONE ×2 (15:13→15:15)
[2020-08-29] MEDS ORDERED: NITROGLYCERIN SYRINGE 3 ML ONE (15:15)
[2020-08-29] MEDS ORDERED: fentaNYL 100 MCG/2 ML INJ ONE (15:25)
--- NOTE | 2020-08-29 16:32 | Operative Report ---
Operative Report Operative Report: Date of Procedure: 08/29/2020 Pre-operative Diagnosis: Peripheral Vascular Disease with Right Fourth Toe Gangr roxy Post-operative Diagnosis: Same Procedure(s): 1. Ultrasound-Guided Access Left Common Femoral Artery 2. Diagnostic Aortogram (No Previous Films for Comparison) 3. Diagnostic Right Lower Extremity Angiogram (No Previous Films for Comparison) 4. Atherectomy with Angioplasty of Right Anterior Tibial Artery And Dorsalis Pedis Artery with CSI Diamondback 1.25 Solid Orbital Atherectomy Catheter, 3.5- 3.0 x 210 NanoCross Balloon, 3.5 x 100 Angiosculpt Balloon, 4.0 x 200 IN.PACT Drug-Coated Balloon 5. Atherectomy with Angioplasty Of Right Posterior Tibial Artery With CSI Diamondback 1.25 Orbital Atherectomy Catheter and 3.0-2.5 x 210 NanoCross Balloon 6. Closure of Left Femoral Arteriotomy with Pro-Newberry Closure Device 7. Radiologic Supervision with Interpretation 8. Monitored Moderate Sedation (Total Anesthesia Time: 158 Minutes) Surgeon: Migue Razo M.D. Glove Cuffer: None Anesthesia: Monitored Moderate Sedation Total Anesthesia Time: 158 Minutes EBL: Minimal Counts: Minimal Complications: None Condition: Stable Specimen: None Indication: The patient is a 54-year-old male with a history of poorly controlled diabetes who presented with gangrene of his right fourth toe. He had an ultrasound performed that demonstrated tibial occlusive disease and possible SFA and popliteal occlusive disease. He is in need of a diagnostic angiogram with possible intervention. He was given the risk, benefits, and alternative procedures and consented to the procedure. Angiographic Findings: The diagnostic aortogram revealed that the aorta was patent without evidence of aneurysmal dilatation or flow-limiting stenosis. Bilateral common iliac arteries were patent without evidence of aneurysmal dilatation or flow-limiting stenosis. The right lower extremity angiogram revealed that the external iliac artery, hypogastric artery, and common femoral artery were patent without evidence of flow-limiting stenosis. The profunda and SFA were patent without evidence of flow-limiting stenosis. The popliteal artery was patent without evidence of flow-limiting stenosis. The anterior tibial artery was diffusely diseased with multiple segments of stenosis ranging from 50 to 85% in short segments. It then occluded at the level of the ankle and reconstituted in the dorsalis pedis artery in the foot. There was an appearance of possible thrombus within the artery. The tibioperoneal trunk was patent without evidence of flow- limiting stenosis. The peroneal artery occluded in the proximal third of the artery without evidence of reconstitution. The posterior tibial artery was diffusely diseased with 70 to 85% stenosis throughout the artery. Both the medial and lateral tarsal arteries were atretic. After intervention the anterior tibial artery and dorsalis pedis artery were patent with less than 15% residual stenosis. The posterior tibial artery was patent with less than 10% residual stenosis to the level of the ankle however collateralized to the peroneal artery and then into the foot through collaterals. Description of Procedure: The patient was brought to the [facility] and laid in supine position. After a timeout was performed his left groin was prepped and draped in normal sterile fashion. Ultrasound was used to identify the left common femoral artery and confirm patency. Once patency was confirmed the overlying skin and soft tissue was anesthetized with lidocaine. An 11 blade was used to make a small stab incision and a curved hemostat was used with ultrasound guidance to bluntly dissect down to the anterior surface of the left common femoral artery. A 21- gauge micropuncture needle was used ultrasound guidance to enter the left common femoral artery and a 0.018 micropuncture wire was advanced into the common femoral artery. The needle was removed and a micropuncture sheath was advanced by Seldinger technique. The inner cannula and wire were removed and a 0.035 Bentson wire was advanced into the aorta. The micropuncture sheath was exchanged for 5 Irish sheath by Seldinger technique. An Omni Flush catheter was advanced over the Bentson wire into the aorta and a diagnostic aortogram was performed with the previously described findings. The Bentson wire was readvanced and the wire and catheter were advanced up and over the bifurcation and the diagnostic right lower extremity angiogram was performed with the previously described findings. The Bentson wire was advanced into the below- knee popliteal artery and after removing the Omni Flush catheter the 5 Irish sheath was exchanged for a 6 Irish 90 cm destination sheath by Seldinger technique. At this point the patient was systemically heparinized with 6000 units of heparin IV and this was redosed with 1000 units of heparin IV every 45 minutes until the completion of the case. I then used a Navicross catheter and a 0.018 V18 Wire and was able to cross all the areas of stenosis in the occlusion in the distal anterior tibial artery and anterior to the dorsalis pedis artery which was confirmed by angiogram. I exchanged the V 18 wire for 0.014 Viper wire and then advanced the CSI Diamondback 1.25 Solid Orbital Atherectomy Catheter into the distal anterior tibial artery and performed atherectomy of the distal anterior tibial artery and dorsalis pedis artery. I serially walked this back into I performed atherectomy of the entire anterior tibial artery. I then performed angioplasty of the artery using a 3.5-3.0 x 210 NanoCross Balloon which resulted in approximately 30% residual stenosis in the mid and proximal sections and 70% residual stenosis and a short segment that had been previously occluded in the transition to the dorsalis pedis artery. Advanced a 3.5 x 100 Angiosculpt Balloon into the segment of the artery and performed angioplasty with a result of approximately 20% residual stenosis however there appeared to be some thrombus and spasm within the arteries were injected 4 mg of TPA and 600 mcg of nitroglycerin which resulted in less than 15% residual stenosis and no residual thrombus or spasm within the distal artery and dorsalis pedis artery. I then treated the proximal and mid artery with a 4.0 x 200 IN.PACT Drug-Coated Balloon with a result of less than 10% residual stenosis. I reinserted the Navicross catheter and used the V 18 wire to cannulate the posterior tibial artery and was able to advance the catheter and w baylee into the artery at the ankle. I attempted to advance the wire into the pedal arch without success. I exchanged the wire for the Viper wire and performed atherectomy with the CSI Diamondback 1.25 Solid Orbital Atherectomy Catheter, to the level of the ankle. I then performed angioplasty with a 3.0- 2.5 x 210 NanoCross Balloon with a result of less than 10% residual stenosis in the treated areas of the posterior tibial artery. There was brisk flow within the artery which flowed into a collateral vessel that collateralized into what appeared to be a distal segment of the peroneal artery and then collateral vessels into the foot. At this point I removed the Viper wire and then pulled the sheath back into the left external iliac artery and advanced the Bentson wire into the aorta. I removed the sheath and then used a Pro-glide closure device to close the left femoral arteriotomy. A sterile dressing was then applied to the left groin entry site and the patient was transported to the recovery area in stable condition.
[2020-08-29] MEDS ORDERED: CLOPIDOGREL 300 MG TAB PO SCH (18:00)
[2020-08-29] MEDS: ASPIRIN EC 81 MG TAB PO SCH (20:24)
[2020-08-29] MEDS: VANCOMYCIN 1,250 MG in SODIUM CHLORIDE 0.9% 250ML 250 ML IV SCH (22:47)
[2020-08-30] MEDS: AMPICILLIN/SULBACTA 3GM/100ML 3 GM/100 ML BAG IV SCH ×4 (01:34→19:10)
[2020-08-30 06:28] LABS: Basophils % (Auto) 0.7 % (0.0-1.8); Eosinophils # (Auto) 0.2 K/mm3 (0.0-0.4); Eosinophils % (Auto) 2.8 % (0.0-4.3); Hematocrit 34.7 % (35.5-45.6); Hemoglobin 11.9 gm/dl (11.8-15.2); Lymphocytes # (Auto) 1.2 K/mm3 (1.2-5.4); Lymphocytes % (Auto) 17.1 % (13.4-35.0); Mean Corpuscular HGB Conc 34 % (32-34); Mean Corpuscular Volume 84 fl (84-94); Monocytes # (Auto) 0.5 K/mm3 (0.0-0.8); Monocytes % (Auto) 7.4 % (0.0-7.3); Platelet Count 242 K/mm3 (140-440); Red Blood Count 4.11 M/mm3 (3.65-5.03); Red Cell Distribution Width 13.1 % (13.2-15.2)
[2020-08-30] MEDS: oxyCODONE /ACETAMINOPHEN 5-325MG TAB PO PRN ×2 (06:41→12:37)
[2020-08-30 06:53] LABS: Alanine Aminotransferase 11 units/L (7-56); Albumin 3.5 g/dL (3.9-5); BUN/Creatinine Ratio 9; Blood Urea Nitrogen 7 mg/dL (9-20); Calcium 8.4 mg/dL (8.4-10.2); Hemolysis Index 0
--- NOTE | 2020-08-30 08:37 | Progress Note ---
Assessment and Plan Assessment and plan: (1) Gangrene of toe of right foot Current Visit: Yes Status: Acute Plan to address problem: Soap to the right foot is gangrenous Needs amputation Patient started on Unasyn and vancomycin (2) PAD (peripheral artery disease) Current Visit: Yes Status: Chronic Plan to address problem: Patient is a smoker ~1 month ago. Right foot dorsalis pedis is occluded. Bilateral lower extremity duplex scan requested vascular surgery consult requested. (3) Uncontrolled diabetes mellitus Current Visit: Yes Status: Chronic Qualifiers: Diabetes mellitus type: type 2 Plan to address problem: Check hemoglobin A1c Accu-Cheks AC at bedtime High-dose sliding scale coverage (4) Hyponatremia Current Visit: Yes Status: Acute Plan to address problem: Very mild Sodium 135 IV normal saline for now (5) DVT prophylaxis Current Visit: Yes Status: Acute Plan to address problem: On heparin and GI prophylaxis 08/29/2020 -Patient has gangrene of the right fourth toes, vascular surgery consulted. Doppler arterial ultrasound of the lower extremities was done and significant for occlusion of the right dorsalis pedis artery. 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 -Patient had vascular work-up and possible amputation. -Patient's hemoglobin A1c is 9.1 which is improved from his previous value of 11.2. Continue with 70/30 20 units twice daily and sliding scale insulin -Hyponatremia; CMP from this morning is pending 08/30/2020 -Discussed with vascular surgeon and he said he will do amputation tomorrow. He had angiogram yesterday History Interval history: Patient was seen and evaluated this morning Patient admitted for gangrene of the right fourth toes Patient does not have any complaints Hospitalist Physical - Physical exam Narrative exam: Not in cardiopulmonary distress. The patient appeared well nourished and normally developed. Vital signs as documented. Head exam is unremarkable. No scleral icterus . Neck is without jugular venous distension, thyromegaly, or carotid bruits. Lungs are clear to auscultation. Cardiac exam reveals regular rate and Rhythm. Abdominal exam reveals normal bowel sounds, nontender, no organomegaly. Extremities large discoloration of the right fourth toes [employer]: Alert and oriented 3. No focal weakness. - Constitutional Vitals: Temp Pulse Resp BP Pulse Ox 99.0 F 89 20 128/80 96 08/30/20 05:01 08/30/20 05:01 08/30/20 05:01 08/30/20 05:01 08/30/20 05:01 General appearance: Present: no acute distress Results - Labs CBC & Chem 7: 08/30/20 06:16 08/30/20 06:16 Labs: Laboratory Last Values WBC 6.8 K/mm3 (4.5-11.0) 08/30/20 06:16 RBC 4.11 M/mm3 (3.65-5.03) 08/30/20 06:16 Hgb 11.9 gm/dl (11.8-15.2) 08/30/20 06:16 Hct 34.7 % (35.5-45.6) L 08/30/20 06:16 MCV 84 fl (84-94) 08/30/20 06:16 MCH 29 pg (28-32) 08/30/20 06:16 MCHC 34 % (32-34) 08/30/20 06:16 RDW 13.1 % (13.2-15.2) L 08/30/20 06:16 Plt Count 242 K/mm3 (140-440) 08/30/20 06:16 Lymph % (Auto) 17.1 % (13.4-35.0) 08/30/20 06:16 [place] % (Auto) 7.4 % (0.0-7.3) H 08/30/20 06:16 Eos % (Auto) 2.8 % (0.0-4.3) 08/30/20 06:16 Baso % (Auto) 0.7 % (0.0-1.8) 08/30/20 06:16 Lymph # (Auto) 1.2 K/mm3 (1.2-5.4) 08/30/20 06:16 [place] # (Auto) 0.5 K/mm3 (0.0-0.8) 08/30/20 06:16 Eos # (Auto) 0.2 K/mm3 (0.0-0.4) 08/30/20 06:16 Baso # (Auto) 0.0 K/mm3 (0.0-0.1) 08/30/20 06:16 Seg Neutrophils % 72.0 % (40.0-70.0) H 08/30/20 06:16 Seg Neutrophils # 4.9 K/mm3 (1.8-7.7) 08/30/20 06:16 ESR 55 mm/Hr (0-20) 08/28/20 15:59 Sodium 140 mmol/L (137-145) 08/30/20 06:16 Potassium 3.9 mmol/L (3.6-5.0) 08/30/20 06:16 Chloride 103.9 mmol/L (98-107) 08/30/20 06:16 Carbon Dioxide 28 mmol/L (22-30) 08/30/20 06:16 Anion Gap 12 mmol/L 08/30/20 06:16 BUN 7 mg/dL (9-20) L 08/30/20 06:16 Creatinine 0.8 mg/dL (0.8-1.3) 08/30/20 06:16 Estimated GFR > 60 ml/min 08/30/20 06:16 BUN/Creatinine Ratio 9 % 08/30/20 06:16 Glucose 96 mg/dL (75-100) 08/30/20 06:16 POC Glucose 106 mg/dL (70-105) H 08/29/20 21:04 Hemoglobin A1c 9.1 % (4-6) H 08/28/20 15:59 Lactic Acid 1.30 mmol/L (0.7-2.0) 08/28/20 15:59 Calcium 8.4 mg/dL (8.4-10.2) 08/30/20 06:16 Magnesium 2.10 mg/dL (1.7-2.3) 08/28/20 15:59 Total Bilirubin 0.40 mg/dL (0.1-1.2) 08/30/20 06:16 AST 12 units/L (5-40) 08/30/20 06:16 ALT 11 units/L (7-56) 08/30/20 06:16 Alkaline Phosphatase 89 units/L (35-129) 08/30/20 06:16 Total Creatine Kinase 76 units/L (55-170) 08/28/20 15:59 C-Reactive Protein 0.70 mg/dL (0.00-1.30) 08/28/20 15:59 Total Protein 6.4 g/dL (6.3-8.2) 08/30/20 06:16 Albumin 3.5 g/dL (3.9-5) L 08/30/20 06:16 Albumin/Globulin Ratio 1.2 % 08/30/20 06:16 Microbiology: Microbiology 08/28/20 15:59 Peripheral/Venous Blood Culture - Preliminary NO GROWTH AFTER 24 HOURS 08/28/20 15:59 Peripheral/Venous Blood Culture - Preliminary NO GROWTH AFTER 24 HOURS Mas/IV: Voiding Method Urinal Active Medications - Current Medications Current Medications: Generic Name Dose Route Start Last Admin Trade Name Freq PRN Reason Stop Dose Admin Acetaminophen 650 mg 08/29/20 01:31 Acetaminophen 325 Mg Tab PO Q4H PRN Pain MILD(1-3)/Fever >100.5/[place] Aspirin 81 mg 08/29/20 18:00 08/29/20 20:24 Aspirin Ec 81 Mg Tab PO 81 mg QDAY NOAH Administration Clopidogrel Bisulfate 75 mg 08/30/20 10:00 Clopidogrel 75 Mg Tab PO QDAY NOAH Famotidine 20 mg 08/29/20 10:00 08/29/20 22:47 Famotidine 20 Mg/2 Ml Inj IV 20 mg BID NOAH Administration Heparin Sodium (Porcine) 5,000 unit 08/29/20 10:00 08/29/20 22:46 Heparin 5,000 Unit/1 Ml Vial SUB-Q 5,000 unit Q12HR NOAH Administration Hydromorphone HCl 0.5 mg 08/29/20 01:31 Hydromorphone 1 Mg/1 Ml Inj IV Q3H PRN Pain , Severe (7-10) Sodium Chloride 1,000 mls @ 75 mls/hr 08/29/20 01:45 08/29/20 22:48 Nacl 0.9% 1000 Ml IV 75 mls/hr DIRECT NOAH Administration Ampicillin Sodium/Sulbactam Sodium 3 gm in 100 mls @ 100 mls/hr 08/29/20 02:00 08/30/20 06:42 Unasyn/Ns 3 Gm/100 Ml IV 100 mls/hr Q6HR NOAH Administration Protocol Vancomycin HCl 1,250 mg/ 275 mls @ 166.667 mls/hr 08/29/20 16:00 08/29/20 22:47 Sodium Chloride IV 166.667 mls/hr Q12H NOAH Administration Ibuprofen 800 mg 08/29/20 01:30 Ibuprofen 800 Mg Tab PO Q8H PRN Pain, Moderate (4-6) Insulin Human Isoph/Insulin Regular 20 unit 08/29/20 08:00 08/29/20 11:03 Insulin Nph/Regular 70/30 Inj SUB-Q Not Given BIDDIAB [facility] Insulin Human Lispro 0 unit 08/29/20 07:30 08/29/20 22:47 Insulin Lispro 100 Unit/Ml SUB-Q Not Given ACHS [facility] Protocol Metoclopramide HCl 10 mg 08/29/20 01:31 Metoclopramide 10 Mg/2 Ml Inj IV Q6H PRN Nausea And Vomiting Ondansetron HCl 4 mg 08/29/20 01:31 08/29/20 03:58 Ondansetron 4 Mg/2 Ml Inj IV 4 mg Q8H PRN Administration Nausea And Vomiting Oxycodone/Acetaminophen 1 tab 08/29/20 01:31 08/30/20 06:41 Oxycodone /Acetaminophen 5-325mg Tab PO 1 tab Q6H PRN Administration Pain, Moderate (4-6) Sodium Chloride 10 ml 08/29/20 10:00 08/29/20 22:47 Sodium Chloride 0.9% 10 Ml Flush Syringe IV 10 ml BID NOAH Administration Sodium Chloride 10 ml 08/29/20 01:31 Sodium Chloride 0.9% 10 Ml Flush Syringe IV PRN PRN LINE FLUSH
--- NOTE | 2020-08-30 09:37 | Progress Note ---
Assessment and Plan Patient is scheduled for right fourth toe amputation tomorrow. Subjective Date of service: 08/30/20 Principal diagnosis: Right fourth toe gangrene Interval history: Patient with a history of peripheral vascular disease who presented with dry gangrene to the right fourth toe. Status post revascularization procedure yesterday. Patient complains of minimal pain. His foot is warm and well perfused. Objective - Constitutional Vitals: Vital Signs - 12hr 08/29/20 08/29/20 08/29/20 22:43 23:22 23:25 Temperature 98.4 F Pulse Rate 79 80 75 Respiratory 18 Rate Blood Pressure 150/78 160/73 Blood Pressure 146/81 [Right] O2 Sat by Pulse 97 99 Oximetry 08/30/20 05:01 Temperature 99.0 F Pulse Rate 89 Respiratory 20 Rate Blood Pressure 128/80 Blood Pressure [Right] O2 Sat by Pulse 96 Oximetry General appearance: Present: no acute distress - EENT Eyes: EOM intact ENT: hearing intact - Neck Neck: supple, normal ROM - Respiratory Respiratory effort: normal Extremities: abnormal - Gastrointestinal General gastrointestinal: Present: deferred Rectal Exam: deferred - Genitourinary Male genitourinary: deferred - Psychiatric Psychiatric: appropriate mood/affect, cooperative - Labs CBC & Chem 7: 08/30/20 06:16 08/30/20 06:16 Labs: Abnormal lab results 08/29/20 08/29/20 08/30/20 Range/Units 12:22 21:04 06:16 Hct 34.7 L (35.5-45.6) % RDW 13.1 L (13.2-15.2) % [place] % (Auto) 7.4 H (0.0-7.3) % Seg Neutrophils % 72.0 H (40.0-70.0) % BUN (9-20) mg/dL POC Glucose 164 H 106 H (70-105) mg/dL Albumin (3.9-5) g/dL 08/30/20 Range/Units 06:16 Hct (35.5-45.6) % RDW (13.2-15.2) % [place] % (Auto) (0.0-7.3) % Seg Neutrophils % (40.0-70.0) % BUN 7 L (9-20) mg/dL POC Glucose (70-105) mg/dL Albumin 3.5 L (3.9-5) g/dL Medications & Allergies - Medications Allergies/Adverse Reactions: Allergies No Known Allergies Allergy (Unverified 01/05/19 16:31) Home Medications: Home Medications Medication Instructions Recorded Confirmed Last Taken Type Ibuprofen [Motrin] 800 mg PO Q8HR PRN #30 tablet 01/05/19 Unknown Rx traMADoL [Ultram] 50 mg PO Q6HR PRN #10 tablet 01/05/19 Unknown Rx Ibuprofen [Motrin 800 MG tab] 800 mg PO Q8HR PRN #20 tablet 08/14/20 Unknown Rx Sulfamethoxazole/Trimethoprim 1 each PO BID #20 tablet 08/14/20 Unknown Rx [Bactrim DS TAB] levoFLOXacin [Levaquin] 750 mg PO QDAY #10 tablet 08/14/20 Unknown Rx oxyCODONE /ACETAMINOPHEN [Percocet 1 tab PO Q6HR PRN #12 tablet 08/14/20 Unknown Rx 5/325] Active Medications: Generic Name Dose Route Start Last Admin Trade Name Freq PRN Reason Stop Dose Admin Acetaminophen 650 mg 08/29/20 01:31 Acetaminophen 325 Mg Tab PO Q4H PRN Pain MILD(1-3)/Fever >100.5/BERNSTEIN Aspirin 81 mg 08/29/20 18:00 08/29/20 20:24 Aspirin Ec 81 Mg Tab PO 81 mg QDAY NOAH Administration Clopidogrel Bisulfate 75 mg 08/30/20 10:00 Clopidogrel 75 Mg Tab PO QDAY NOAH Famotidine 20 mg 08/30/20 10:00 Famotidine 20 Mg Tab PO BID NOAH Heparin Sodium (Porcine) 5,000 unit 08/29/20 10:00 08/29/20 22:46 Heparin 5,000 Unit/1 Ml Vial SUB-Q 5,000 unit Q12HR NOAH Administration Hydromorphone HCl 0.5 mg 08/29/20 01:31 Hydromorphone 1 Mg/1 Ml Inj IV Q3H PRN Pain , Severe (7-10) Sodium Chloride 1,000 mls @ 75 mls/hr 08/29/20 01:45 08/29/20 22:48 Nacl 0.9% 1000 Ml IV 75 mls/hr DIRECT NOAH Administration Ampicillin Sodium/Sulbactam Sodium 3 gm in 100 mls @ 100 mls/hr 08/29/20 02:00 08/30/20 06:42 Unasyn/Ns 3 Gm/100 Ml IV 100 mls/hr Q6HR [facility] Administration Protocol Vancomycin HCl 1,250 mg/ 275 mls @ 166.667 mls/hr 08/30/20 10:00 Sodium Chloride IV Q12HR NOAH Ibuprofen 800 mg 08/29/20 01:30 Ibuprofen 800 Mg Tab PO Q8H PRN Pain, Moderate (4-6) Insulin Human Isoph/Insulin Regular 20 unit 08/29/20 08:00 08/29/20 11:03 Insulin Nph/Regular 70/30 Inj SUB-Q Not Given BIDDIAB NOAH Insulin Human Lispro 0 unit 08/29/20 07:30 08/29/20 22:47 Insulin Lispro 100 Unit/Ml SUB-Q Not Given ACHS [facility] Protocol Metoclopramide HCl 10 mg 08/29/20 01:31 Metoclopramide 10 Mg/2 Ml Inj IV Q6H PRN Nausea And Vomiting Ondansetron HCl 4 mg 08/29/20 01:31 08/29/20 03:58 Ondansetron 4 Mg/2 Ml Inj IV 4 mg Q8H PRN Administration Nausea And Vomiting Oxycodone/Acetaminophen 1 tab 08/29/20 01:31 08/30/20 06:41 Oxycodone /Acetaminophen 5-325mg Tab PO 1 tab Q6H PRN Administration Pain, Moderate (4-6) Sodium Chloride 10 ml 08/29/20 10:00 08/29/20 22:47 Sodium Chloride 0.9% 10 Ml Flush Syringe IV 10 ml BID NOAH Administration Sodium Chloride 10 ml 08/29/20 01:31 Sodium Chloride 0.9% 10 Ml Flush Syringe IV PRN PRN LINE FLUSH
[2020-08-30] MEDS: VANCOMYCIN 1,250 MG in SODIUM CHLORIDE 0.9% 250ML 250 ML IV SCH ×3 (10:00→22:06)
[2020-08-30] MEDS: ASPIRIN EC 81 MG TAB PO SCH (12:38)
[2020-08-30] MEDS: HEPARIN 5,000 UNIT/1 ML VIAL SUB-Q SCH ×2 (12:38→22:08)
[2020-08-30] MEDS: FAMOTIDINE 20 MG TAB PO SCH ×2 (12:38→22:06)
[2020-08-30] MEDS: CLOPIDOGREL 75 MG TAB PO SCH (12:39)
[2020-08-30] MEDS: INSULIN LISPRO 100 UNIT/ML SUB-Q SCH ×3 (12:42→22:33)
[2020-08-30] MEDS: INSULIN NPH/REGULAR 70/30 INJ SUB-Q SCH ×3 (12:42→21:02)
--- NOTE | 2020-08-30 22:45 | Vascular Lab Report ---
DUPLEX DOPPLER LOWER EXTREMITY ARTERIAL, LEFT INDICATION / CLINICAL INFORMATION: Peripheral arterial disease TECHNIQUE: Arterial duplex examination of the left lower extremity performed using B-mode, color flow and spectr al Doppler assessment. FINDINGS: LEFT: Common Femoral Artery: PSV 90 cm/sec. Biphasic waveform. Proximal SFA: PSV 63 cm/sec. Biphasic waveform. Mid SFA: PSV 69 cm/sec. Triphasic waveform. Distal SFA: PSV 72 cm/sec. Biphasic waveform. Popliteal artery: PSV 63 cm/sec. Triphasic waveform. Posterior tibial artery: PSV 71 cm/sec. Triphasic waveform. Dorsalis Pedis Artery: PSV 17 cm/sec. Monophasic waveform. No flow was identified in the distal anterior tibial artery. IMPRESSION: 1. Occlusion of the distal anterior tibial artery. 2. Abnormal waveforms within the left lower extremity as above. Ankle-Brachial Index (SHANA): - Calcified arteries > 1.4 - Normal = 0.9-1.4 - Mild PAD = 0.7-0.89 - Moderate PAD = 0.51-0.69 - Severe PAD < 0.5 Doppler Waveform: - Triphasic is normal. - Biphasic is abnormal if clear transition from triphasic signal along vascular tree. - Monophasic is abnormal. Signer Name: Noreen Gonzalez MD Signed: 08/30/2020 10:40 PM Workstation Name: [id number]
[2020-08-31] MEDS: AMPICILLIN/SULBACTA 3GM/100ML 3 GM/100 ML BAG IV SCH ×5 (00:53→23:52)
--- NOTE | 2020-08-31 06:05 | Event Note ---
Date: 08/31/20 Patient is bleeding from left drain. Dressing is changed and pressure bandages and sandbag is applied. CBC ordered patient will see by vascular surgeon in the morning
[2020-08-31 07:58] LABS: Basophils % (Auto) 0.3 % (0.0-1.8); Eosinophils # (Auto) 0.2 K/mm3 (0.0-0.4); Eosinophils % (Auto) 3.5 % (0.0-4.3); Hematocrit 33.3 % (35.5-45.6); Hemoglobin 11.6 gm/dl (11.8-15.2); Lymphocytes # (Auto) 1.3 K/mm3 (1.2-5.4); Lymphocytes % (Auto) 20.5 % (13.4-35.0); Mean Corpuscular HGB Conc 35 % (32-34); Mean Corpuscular Volume 85 fl (84-94); Monocytes # (Auto) 0.7 K/mm3 (0.0-0.8); Monocytes % (Auto) 10.2 % (0.0-7.3); Platelet Count 225 K/mm3 (140-440); Red Blood Count 3.91 M/mm3 (3.65-5.03); Red Cell Distribution Width 13.6 % (13.2-15.2)
[2020-08-31 08:05] LABS: BUN/Creatinine Ratio 9; Blood Urea Nitrogen 7 mg/dL (9-20); Calcium 8.5 mg/dL (8.4-10.2)
[2020-08-31 08:06] LABS: Hemolysis Index 2
[2020-08-31] MEDS: INSULIN LISPRO 100 UNIT/ML SUB-Q SCH ×4 (08:18→21:45)
[2020-08-31] MEDS: INSULIN NPH/REGULAR 70/30 INJ SUB-Q SCH ×2 (08:19→17:32)
--- NOTE | 2020-08-31 09:46 | Progress Note ---
Assessment and Plan Assessment and plan: (1) Gangrene of toe of right foot Current Visit: Yes Status: Acute Plan to address problem: Soap to the right foot is gangrenous Needs amputation Patient started on Unasyn and vancomycin (2) PAD (peripheral artery disease) Current Visit: Yes Status: Chronic Plan to address problem: Patient is a smoker ~1 month ago. Right foot dorsalis pedis is occluded. Bilateral lower extremity duplex scan requested vascular surgery consult requested. (3) Uncontrolled diabetes mellitus Current Visit: Yes Status: Chronic Qualifiers: Diabetes mellitus type: type 2 Plan to address problem: Check hemoglobin A1c Accu-Cheks AC at bedtime High-dose sliding scale coverage (4) Hyponatremia Current Visit: Yes Status: Acute Plan to address problem: Very mild Sodium 135 IV normal saline for now (5) DVT prophylaxis Current Visit: Yes Status: Acute Plan to address problem: On heparin and GI prophylaxis 08/29/2020 -Patient has gangrene of the right fourth toes, vascular surgery consulted. Doppler arterial ultrasound of the lower extremities was done and significant for occlusion of the right dorsalis pedis artery. 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 -Patient had vascular work-up and possible amputation. -Patient's hemoglobin A1c is 9.1 which is improved from his previous value of 11.2. Continue with 70/30 20 units twice daily and sliding scale insulin -Hyponatremia; CMP from this morning is pending 08/30/2020 -Discussed with vascular surgeon and he said he will do amputation tomorrow. He had angiogram yesterday 08/31/2020 -Patient had bleeding from the left groin, at the site where angiogram was done. Pressure and sandbag was applied. -Hemoglobin no significant change from yesterday's value -Plan is to do amputation today History Interval history: Patient was seen and evaluated this morning Patient admitted for gangrene of the right fourth toes Patient had bleeding from the left groin, from the site angiogram was done Hospitalist Physical - Physical exam Narrative exam: Not in cardiopulmonary distress. The patient appeared well nourished and normally developed. Vital signs as documented. Head exam is unremarkable. No scleral icterus . Neck is without jugular venous distension, thyromegaly, or carotid bruits. Lungs are clear to auscultation. Cardiac exam reveals regular rate and Rhythm. Abdominal exam reveals normal bowel sounds, nontender, no organomegaly. Extremities large discoloration of the right fourth toes OCULAR CARE TECHNICIAN: Alert and oriented 3. No focal weakness. - Constitutional Vitals: Temp Pulse Resp BP Pulse Ox 99.1 F 88 16 138/81 97 08/31/20 03:17 08/31/20 03:17 08/31/20 03:17 08/31/20 03:17 08/31/20 03:17 General appearance: Present: no acute distress Results - Labs CBC & Chem 7: 08/31/20 07:16 08/31/20 07:16 Labs: Laboratory Last Values WBC 6.5 K/mm3 (4.5-11.0) 08/31/20 07:16 RBC 3.91 M/mm3 (3.65-5.03) 08/31/20 07:16 Hgb 11.6 gm/dl (11.8-15.2) L 08/31/20 07:16 Hct 33.3 % (35.5-45.6) L 08/31/20 07:16 MCV 85 fl (84-94) 08/31/20 07:16 MCH 30 pg (28-32) 08/31/20 07:16 MCHC 35 % (32-34) H 08/31/20 07:16 RDW 13.6 % (13.2-15.2) 08/31/20 07:16 Plt Count 225 K/mm3 (140-440) 08/31/20 07:16 Lymph % (Auto) 20.5 % (13.4-35.0) 08/31/20 07:16 [place] % (Auto) 10.2 % (0.0-7.3) H 08/31/20 07:16 Eos % (Auto) 3.5 % (0.0-4.3) 08/31/20 07:16 Baso % (Auto) 0.3 % (0.0-1.8) 08/31/20 07:16 Lymph # (Auto) 1.3 K/mm3 (1.2-5.4) 08/31/20 07:16 [place] # (Auto) 0.7 K/mm3 (0.0-0.8) 08/31/20 07:16 Eos # (Auto) 0.2 K/mm3 (0.0-0.4) 08/31/20 07:16 Baso # (Auto) 0.0 K/mm3 (0.0-0.1) 08/31/20 07:16 Seg Neutrophils % 65.5 % (40.0-70.0) 08/31/20 07:16 Seg Neutrophils # 4.2 K/mm3 (1.8-7.7) 08/31/20 07:16 ESR 55 mm/Hr (0-20) 08/28/20 15:59 Sodium 138 mmol/L (137-145) 08/31/20 07:16 Potassium 3.7 mmol/L (3.6-5.0) 08/31/20 07:16 Chloride 104.4 mmol/L (98-107) 08/31/20 07:16 Carbon Dioxide 24 mmol/L (22-30) 08/31/20 07:16 Anion Gap 13 mmol/L 08/31/20 07:16 BUN 7 mg/dL (9-20) L 08/31/20 07:16 Creatinine 0.8 mg/dL (0.8-1.3) 08/31/20 07:16 Estimated GFR > 60 ml/min 08/31/20 07:16 BUN/Creatinine Ratio 9 % 08/31/20 07:16 Glucose 130 mg/dL (75-100) H 08/31/20 07:16 POC Glucose 132 mg/dL (70-105) H 08/31/20 07:31 Hemoglobin A1c 9.1 % (4-6) H 08/28/20 15:59 Lactic Acid 1.30 mmol/L (0.7-2.0) 08/28/20 15:59 Calcium 8.5 mg/dL (8.4-10.2) 08/31/20 07:16 Magnesium 2.10 mg/dL (1.7-2.3) 08/28/20 15:59 Total Bilirubin 0.40 mg/dL (0.1-1.2) 08/30/20 06:16 AST 12 units/L (5-40) 08/30/20 06:16 ALT 11 units/L (7-56) 08/30/20 06:16 Alkaline Phosphatase 89 units/L (35-129) 08/30/20 06:16 Total Creatine Kinase 76 units/L (55-170) 08/28/20 15:59 C-Reactive Protein 0.70 mg/dL (0.00-1.30) 08/28/20 15:59 Total Protein 6.4 g/dL (6.3-8.2) 08/30/20 06:16 Albumin 3.5 g/dL (3.9-5) L 08/30/20 06:16 Albumin/Globulin Ratio 1.2 % 08/30/20 06:16 Microbiology: Microbiology 08/28/20 15:59 Peripheral/Venous Blood Culture - Preliminary NO GROWTH AFTER 48 HOURS 08/28/20 15:59 Peripheral/Venous Blood Culture - Preliminary NO GROWTH AFTER 48 HOURS Mas/IV: Voiding Method Toilet Active Medications - Current Medications Current Medications: Generic Name Dose Route Start Last Admin Trade Name Freq PRN Reason Stop Dose Admin Acetaminophen 650 mg 08/29/20 01:31 Acetaminophen 325 Mg Tab PO Q4H PRN Pain MILD(1-3)/Fever >100.5/[place] Aspirin 81 mg 08/29/20 18:00 08/30/20 12:38 Aspirin Ec 81 Mg Tab PO 81 mg QDAY NOAH Administration Clopidogrel Bisulfate 75 mg 08/30/20 10:00 08/30/20 12:39 Clopidogrel 75 Mg Tab PO 75 mg QDAY NOAH Administration Docusate Sodium 100 mg 08/31/20 10:00 Docusate Sodium 100 Mg Cap PO BID NOAH Famotidine 20 mg 08/30/20 10:00 08/30/20 22:06 Famotidine 20 Mg Tab PO 20 mg BID NOAH Administration Heparin Sodium (Porcine) 5,000 unit 08/29/20 10:00 08/30/20 22:08 Heparin 5,000 Unit/1 Ml Vial SUB-Q Not Given Q12HR NOAH Hydromorphone HCl 0.5 mg 08/29/20 01:31 Hydromorphone 1 Mg/1 Ml Inj IV Q3H PRN Pain , Severe (7-10) Sodium Chloride 1,000 mls @ 75 mls/hr 08/29/20 01:45 08/29/20 22:48 Nacl 0.9% 1000 Ml IV 75 mls/hr DIRECT NOAH Administration Ampicillin Sodium/Sulbactam Sodium 3 gm in 100 mls @ 100 mls/hr 08/29/20 02:00 08/31/20 05:12 Unasyn/Ns 3 Gm/100 Ml IV 100 mls/hr Q6HR NOAH Administration Protocol Vancomycin HCl 1,250 mg/ 275 mls @ 166.667 mls/hr 08/30/20 10:00 08/30/20 22:06 Sodium Chloride IV 166.667 mls/hr Q12HR NOAH Administration Ibuprofen 800 mg 08/29/20 01:30 Ibuprofen 800 Mg Tab PO Q8H PRN Pain, Moderate (4-6) Insulin Human Isoph/Insulin Regular 20 unit 08/29/20 08:00 08/31/20 08:19 Insulin Nph/Regular 70/30 Inj SUB-Q Not Given BIDDIAB NOAH Insulin Human Lispro 0 unit 08/29/20 07:30 08/31/20 08:18 Insulin Lispro 100 Unit/Ml SUB-Q Not Given ACHS [facility]PL[facility] Protocol Metoclopramide HCl 10 mg 08/29/20 01:31 Metoclopramide 10 Mg/2 Ml Inj IV Q6H PRN Nausea And Vomiting Ondansetron HCl 4 mg 08/29/20 01:31 08/29/20 03:58 Ondansetron 4 Mg/2 Ml Inj IV 4 mg Q8H PRN Administration Nausea And Vomiting Oxycodone/Acetaminophen 1 tab 08/29/20 01:31 08/30/20 12:37 Oxycodone /Acetaminophen 5-325mg Tab PO 1 tab Q6H PRN Administration Pain, Moderate (4-6) Sodium Chloride 10 ml 08/29/20 10:00 08/30/20 22:07 Sodium Chloride 0.9% 10 Ml Flush Syringe IV 10 ml BID NOAH Administration Sodium Chloride 10 ml 08/29/20 01:31 Sodium Chloride 0.9% 10 Ml Flush Syringe IV PRN PRN LINE FLUSH
[2020-08-31] MEDS ORDERED: LACTATED RINGERS 1,000 ML ONE (10:33)
[2020-08-31] MEDS ORDERED: HYDROmorphone 1 MG/1 ML INJ IV PRN ×2 (10:35)
[2020-08-31] MEDS ORDERED: ONDANSETRON 4 MG/2 ML INJ IV PRN (10:35)
--- NOTE | 2020-08-31 10:37 | Anesthesia Day of Surgery ---
Anesthesia Day of Surgery - Day of Surgery Patient Examined: Yes Patient H&P Reviewed: Yes Patient is NPO: Yes
--- NOTE | 2020-08-31 10:40 | Anesthesia Consultation ---
Anesthesia Consult and Med Hx Date of service: 08/31/20 - Airway Anesthetic Teeth Evaluation: Poor, Partials ROM Head & Neck: Adequate Mental/Hyoid Distance: Adequate Mallampati Class: Class I Intubation Access Assessment: Good - Pre-Operative Health Status ASA Pre-Surgery Classification: ASA3 Proposed Anesthetic Plan: General - Pulmonary Hx Smoking: Yes Hx Respiratory Symptoms: No (+2FS) COPD: No - Cardiovascular System Hx Peripheral Vascular Disease: Yes (Also DVT) - Gastrointestinal Hx Gastroesophageal Reflux Disease: No - Endocrine Hx Non-Insulin Dependent Diabetes: Yes (HgbA1C 9.1) - Hematic Hx Anemia: Yes Hx Sickle Cell Disease: No - Other Systems Hx Obesity: No
[2020-08-31] MEDS ORDERED: LACTATED RINGERS 1,000 ML IV SCH (10:45)
[2020-08-31] MEDS ORDERED: propofoL 200 MG/20 ML VIAL IV ONE (10:54)
[2020-08-31] MEDS ORDERED: fentaNYL 100 MCG/2 ML INJ ONE (10:57)
[2020-08-31] MEDS ORDERED: LIDOCAINE MPF (2%) 20 MG/1 ML VIAL 5 ML ONE (11:19)
[2020-08-31] MEDS ORDERED: ONDANSETRON 4 MG/2 ML INJ ONE (11:19)
[2020-08-31] MEDS ORDERED: SODIUM CHLORIDE 0.9% IRR 1,500 ML BOTTLE IR ONE (11:51)
--- NOTE | 2020-08-31 11:59 | Operative Report ---
Operative Report Operative Report: Date of Procedure: 08/31/2020 Pre-operative Diagnosis: Peripheral Vascular Disease with Right Fourth Toe Gangr roxy Post-operative Diagnosis: Same Procedure(s): 1. Amputation of Right Fourth Toe Surgeon: Migue Raoz M.D. Presentation Specialist: Erma Anesthesia: General Endotracheal Anesthesia EBL: Minimal Counts: Correct Complications: None Condition: Stable Findings: All remaining tissue was healthy with bleeding edges and no evidence of infection. Specimen: Right fourth toe was sent to pathology. Indication: The patient is a 54-year-old male with a history of peripheral vascular disease who presented with gangrene of his right fourth toe. He underwent revascularization of his right lower extremity and is in need of amputation of the right fourth toe. He was given the risk, benefits, and alternative procedures and consented to the procedure. Description of Procedure: The patient was brought to the operating room and laid in supine position. After general endotracheal anesthesia was achieved his right foot was prepped and draped in normal sterile fashion. A 15 blade was then used to make a circumferential incision around the base of the fourth toe and carried down to the distal phalanx using the 15 blade. A bone cutter was then used to transect the distal phalanx and the specimen was passed off. A rongeur was then used to debride the bone down to healthy bone and then curved Mayos were used to further dissect tendon and soft tissue from the base of the wound. The wound was c opiously irrigated and explored and there was no evidence of infection within the wound. The wound edges were healthy with bleeding edges. The wound edges were then reapproximated using 2-0 Ethilon in interrupted vertical mattress fashion. Once the wound was closed it was dressed with Xeroform gauze, fluffs, a Kerlix roll, and a 4 inch [place] bandage. The patient tolerated the procedure well. All sponge, needle, and instrument counts were correct. The patient was taken to the recovery area in stable condition.
[2020-08-31] MEDS: DOCUSATE SODIUM 100 MG CAP PO SCH ×2 (12:16→21:44)
[2020-08-31] MEDS: HEPARIN 5,000 UNIT/1 ML VIAL SUB-Q SCH ×2 (12:16→21:45)
[2020-08-31] MEDS: ASPIRIN EC 81 MG TAB PO SCH (12:16)
[2020-08-31] MEDS: CLOPIDOGREL 75 MG TAB PO SCH (12:17)
[2020-08-31] MEDS: FAMOTIDINE 20 MG TAB PO SCH ×2 (12:17→21:44)
[2020-08-31] MEDS: VANCOMYCIN 1,250 MG in SODIUM CHLORIDE 0.9% 250ML 250 ML IV SCH ×2 (12:18→21:44)
[2020-08-31] MEDS: HYDROmorphone 1 MG/1 ML INJ IV PRN ×2 (15:21→21:43)
--- NOTE | 2020-08-31 15:50 | Post Anesthesia Evaluation ---
- Post Anesthesia Evaluation Patient Participated: Yes Airway Patent: Yes Stable Respiratory Function: Yes Nausea/Vomiting: No Temp > 96.8F: Yes Pain Manageable: Yes Adequeate Hydration: Yes Anesthesia Complications: No Block Receding Appropriately: Not Applicable Patient on Ventilator: No
[2020-08-31] MEDS: oxyCODONE /ACETAMINOPHEN 5-325MG TAB PO PRN ×2 (17:33→23:49)
[2020-09-01] MEDS: SODIUM CHLORIDE 0.9% 1000 ML 1,000 ML IV SCH ×2 (04:33→19:32)
[2020-09-01] MEDS: AMPICILLIN/SULBACTA 3GM/100ML 3 GM/100 ML BAG IV SCH (06:07)
[2020-09-01 06:12] LABS: Blood Urea Nitrogen 7 mg/dL (9-20); Hemolysis Index 2
[2020-09-01 06:16] LABS: BUN/Creatinine Ratio 10
[2020-09-01] MEDS: HYDROmorphone 1 MG/1 ML INJ IV PRN ×3 (06:50→22:43)
[2020-09-01] MEDS: INSULIN LISPRO 100 UNIT/ML SUB-Q SCH ×4 (07:36→22:45)
--- NOTE | 2020-09-01 08:16 | Progress Note ---
Assessment and Plan Assessment and plan: (1) Gangrene of toe of right foot Current Visit: Yes Status: Acute Plan to address problem: Soap to the right foot is gangrenous Needs amputation Patient started on Unasyn and vancomycin (2) PAD (peripheral artery disease) Current Visit: Yes Status: Chronic Plan to address problem: Patient is a smoker ~1 month ago. Right foot dorsalis pedis is occluded. Bilateral lower extremity duplex scan requested vascular surgery consult requested. (3) Uncontrolled diabetes mellitus Current Visit: Yes Status: Chronic Qualifiers: Diabetes mellitus type: type 2 Plan to address problem: Check hemoglobin A1c Accu-Cheks AC at bedtime High-dose sliding scale coverage (4) Hyponatremia Current Visit: Yes Status: Acute Plan to address problem: Very mild Sodium 135 IV normal saline for now (5) DVT prophylaxis Current Visit: Yes Status: Acute Plan to address problem: On heparin and GI prophylaxis 08/29/2020 -Patient has gangrene of the right fourth toes, vascular surgery consulted. Doppler arterial ultrasound of the lower extremities was done and significant for occlusion of the right dorsalis pedis artery. 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 -Patient had vascular work-up and possible amputation. -Patient's hemoglobin A1c is 9.1 which is improved from his previous value of 11.2. Continue with 70/30 20 units twice daily and sliding scale insulin -Hyponatremia; CMP from this morning is pending 08/30/2020 -Discussed with vascular surgeon and he said he will do amputation tomorrow. He had angiogram yesterday 08/31/2020 -Patient had bleeding from the left groin, at the site where angiogram was done. Pressure and sandbag was applied. -Hemoglobin no significant change from yesterday's value -Plan is to do amputation today 09/01/2020 -Status post right fourth toe amputation. Status post vascularization. There is dark discoloration of the tip of the big toe. Was seen by vascular and recommend to monitor. I discontinued IV antibiotics. History Interval history: Patient was seen and evaluated this morning Patient admitted for gangrene of the right fourth toes Status post angiogram and right fourth toe amputation Hospitalist Physical - Physical exam Narrative exam: Not in cardiopulmonary distress. The patient appeared well nourished and normally developed. Vital signs as documented. Head exam is unremarkable. No scleral icterus . Neck is without jugular venous distension, thyromegaly, or carotid bruits. Lungs are clear to auscultation. Cardiac exam reveals regular rate and Rhythm. Abdominal exam reveals normal bowel sounds, nontender, no organomegaly. 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 No focal weakness. - Constitutional Vitals: Temp Pulse Resp BP Pulse Ox 98.5 F 92 H 18 166/100 99 08/31/20 17:00 08/31/20 17:00 09/01/20 07:20 08/31/20 17:00 08/31/20 17:00 General appearance: Present: no acute distress Results - Labs CBC & Chem 7: 08/31/20 07:16 09/01/20 05:04 Labs: Laboratory Last Values WBC 6.5 K/mm3 (4.5-11.0) 08/31/20 07:16 RBC 3.91 M/mm3 (3.65-5.03) 08/31/20 07:16 Hgb 11.6 gm/dl (11.8-15.2) L 08/31/20 07:16 Hct 33.3 % (35.5-45.6) L 08/31/20 07:16 MCV 85 fl (84-94) 08/31/20 07:16 MCH 30 pg (28-32) 08/31/20 07:16 MCHC 35 % (32-34) H 08/31/20 07:16 RDW 13.6 % (13.2-15.2) 08/31/20 07:16 Plt Count 225 K/mm3 (140-440) 08/31/20 07:16 Lymph % (Auto) 20.5 % (13.4-35.0) 08/31/20 07:16 [place] % (Auto) 10.2 % (0.0-7.3) H 08/31/20 07:16 Eos % (Auto) 3.5 % (0.0-4.3) 08/31/20 07:16 Baso % (Auto) 0.3 % (0.0-1.8) 08/31/20 07:16 Lymph # (Auto) 1.3 K/mm3 (1.2-5.4) 08/31/20 07:16 [place] # (Auto) 0.7 K/mm3 (0.0-0.8) 08/31/20 07:16 Eos # (Auto) 0.2 K/mm3 (0.0-0.4) 08/31/20 07:16 Baso # (Auto) 0.0 K/mm3 (0.0-0.1) 08/31/20 07:16 Seg Neutrophils % 65.5 % (40.0-70.0) 08/31/20 07:16 Seg Neutrophils # 4.2 K/mm3 (1.8-7.7) 08/31/20 07:16 ESR 55 mm/Hr (0-20) 08/28/20 15:59 Sodium 139 mmol/L (137-145) 09/01/20 05:04 Potassium 3.6 mmol/L (3.6-5.0) 09/01/20 05:04 Chloride 105.6 mmol/L (98-107) 09/01/20 05:04 Carbon Dioxide 27 mmol/L (22-30) 09/01/20 05:04 Anion Gap 10 mmol/L 09/01/20 05:04 BUN 7 mg/dL (9-20) L 09/01/20 05:04 Creatinine 0.7 mg/dL (0.8-1.3) L 09/01/20 05:04 Estimated GFR > 60 ml/min 09/01/20 05:04 BUN/Creatinine Ratio 10 % 09/01/20 05:04 Glucose 78 mg/dL (75-100) 09/01/20 05:04 POC Glucose 94 mg/dL (70-105) 09/01/20 07:22 Hemoglobin A1c 9.1 % (4-6) H 08/28/20 15:59 Lactic Acid 1.30 mmol/L (0.7-2.0) 08/28/20 15:59 Calcium 8.0 mg/dL (8.4-10.2) L 09/01/20 05:04 Magnesium 2.10 mg/dL (1.7-2.3) 08/28/20 15:59 Total Bilirubin 0.40 mg/dL (0.1-1.2) 08/30/20 06:16 AST 12 units/L (5-40) 08/30/20 06:16 ALT 11 units/L (7-56) 08/30/20 06:16 Alkaline Phosphatase 89 units/L (35-129) 08/30/20 06:16 Total Creatine Kinase 76 units/L (55-170) 08/28/20 15:59 C-Reactive Protein 0.70 mg/dL (0.00-1.30) 08/28/20 15:59 Total Protein 6.4 g/dL (6.3-8.2) 08/30/20 06:16 Albumin 3.5 g/dL (3.9-5) L 08/30/20 06:16 Albumin/Globulin Ratio 1.2 % 08/30/20 06:16 Microbiology: Microbiology 08/28/20 15:59 Peripheral/Venous Blood Culture - Preliminary NO GROWTH AFTER 72 HOURS 08/28/20 15:59 Peripheral/Venous Blood Culture - Preliminary NO GROWTH AFTER 72 HOURS Mas/IV: Voiding Method Toilet Active Medications - Current Medications Current Medications: Generic Name Dose Route Start Last Admin Trade Name Freq PRN Reason Stop Dose Admin Acetaminophen 650 mg 08/29/20 01:31 Acetaminophen 325 Mg Tab PO Q4H PRN Pain MILD(1-3)/Fever >100.5/[place] Aspirin 81 mg 08/29/20 18:00 08/31/20 12:16 Aspirin Ec 81 Mg Tab PO Not Given QDAY [facility] Clopidogrel Bisulfate 75 mg 08/30/20 10:00 08/31/20 12:17 Clopidogrel 75 Mg Tab PO Not Given QDAY [facility] Docusate Sodium 100 mg 08/31/20 10:00 08/31/20 21:44 Docusate Sodium 100 Mg Cap PO 100 mg BID NOAH Administration Famotidine 20 mg 08/30/20 10:00 08/31/20 21:44 Famotidine 20 Mg Tab PO 20 mg BID NOAH Administration Heparin Sodium (Porcine) 5,000 unit 08/29/20 10:00 08/31/20 21:45 Heparin 5,000 Unit/1 Ml Vial SUB-Q Not Given Q12HR NOAH Hydromorphone HCl 0.5 mg 08/29/20 01:31 09/01/20 06:50 Hydromorphone 1 Mg/1 Ml Inj IV 0.5 mg Q3H PRN Administration Pain , Severe (7-10) Sodium Chloride 1,000 mls @ 75 mls/hr 08/29/20 01:45 09/01/20 04:33 Nacl 0.9% 1000 Ml IV 75 mls/hr DIRECT NOAH Administration Ampicillin Sodium/Sulbactam Sodium 3 gm in 100 mls @ 100 mls/hr 08/29/20 02:00 09/01/20 06:07 Unasyn/Ns 3 Gm/100 Ml IV 100 mls/hr Q6HR NOAH Administration Protocol Vancomycin HCl 1,250 mg/ 275 mls @ 166.667 mls/hr 08/30/20 10:00 08/31/20 21:44 Sodium Chloride IV 166.667 mls/hr Q12HR NOAH Administration Lactated Ringer's 1,000 mls @ 100 mls/hr 08/31/20 10:45 08/31/20 10:30 Lactated Ringers IV 09/01/20 10:44 100 mls/hr DIRECT NOAH Administration Ibuprofen 800 mg 08/29/20 01:30 Ibuprofen 800 Mg Tab PO Q8H PRN Pain, Moderate (4-6) Insulin Human Isoph/Insulin Regular 20 unit 08/29/20 08:00 08/31/20 17:32 Insulin Nph/Regular 70/30 Inj SUB-Q 20 unit BIDDIAB NOAH Administration Insulin Human Lispro 0 unit 08/29/20 07:30 09/01/20 07:36 Insulin Lispro 100 Unit/Ml SUB-Q Not Given ACHS NOAH Protocol Metoclopramide HCl 10 mg 08/29/20 01:31 Metoclopramide 10 Mg/2 Ml Inj IV Q6H PRN Nausea And Vomiting Ondansetron HCl 4 mg 08/29/20 01:31 08/29/20 03:58 Ondansetron 4 Mg/2 Ml Inj IV 4 mg Q8H PRN Administration Nausea And Vomiting Oxycodone/Acetaminophen 1 tab 08/29/20 01:31 08/31/20 23:49 Oxycodone /Acetaminophen 5-325mg Tab PO 1 tab Q6H PRN Administration Pain, Moderate (4-6) Sodium Chloride 10 ml 08/29/20 10:00 08/31/20 21:45 Sodium Chloride 0.9% 10 Ml Flush Syringe IV 10 ml BID NOAH Administration Sodium Chloride 10 ml 08/29/20 01:31 Sodium Chloride 0.9% 10 Ml Flush Syringe IV PRN PRN LINE FLUSH
[2020-09-01] MEDS: HEPARIN 5,000 UNIT/1 ML VIAL SUB-Q SCH ×2 (09:11→22:44)
[2020-09-01] MEDS: ASPIRIN EC 81 MG TAB PO SCH (09:13)
[2020-09-01] MEDS: DOCUSATE SODIUM 100 MG CAP PO SCH ×2 (09:13→22:44)
[2020-09-01] MEDS: CLOPIDOGREL 75 MG TAB PO SCH (09:13)
[2020-09-01] MEDS: FAMOTIDINE 20 MG TAB PO SCH ×2 (09:13→22:44)
[2020-09-01] MEDS: VANCOMYCIN 1,250 MG in SODIUM CHLORIDE 0.9% 250ML 250 ML IV SCH (09:13)
[2020-09-01] MEDS: INSULIN NPH/REGULAR 70/30 INJ SUB-Q SCH ×2 (09:14→17:02)
--- NOTE | 2020-09-01 10:10 | Progress Note ---
Assessment and Plan Patient status post right fourth toe amputation. He will need a pressure offloading shoe for discharge home. The patient will be started on Pletal to allow maximum vasodilatation of the small pedal blood vessels. We will monitor his 1 cm eschar on the tip of his right first toe. Patient underwent maximal reconstruction however, some spasm was noted within the posterior tibial artery. He will need to continue his Colace while he is on narcotics. Once the patient has a pressure offloading shoe and is able to ambulate, he may be discharged home. 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 The patient will need outpatient podiatry as well. Subjective Date of service: 09/01/20 Principal diagnosis: Right fourth toe gangrene Interval history: Patient is doing well status post fourth toe amputation of his right foot. The amputation site is clean dry and intact with pink appearance. The patient does have a 1 cm eschar on the tip of his right first toe. Patient recently underwent endovascular reconstruction of his anterior and posterior tibial arteries. No complaints of any pain. The patient's left groin puncture site from prior endovascular intervention is clean dry and intact with no significant hematoma. Objective - Constitutional Vitals: Vital Signs - 12hr 08/31/20 08/31/20 09/01/20 22:13 23:49 00:49 Respiratory 18 20 20 Rate 09/01/20 09/01/20 06:50 07:20 Respiratory 20 18 Rate General appearance: Present: no acute distress - EENT Eyes: EOM intact ENT: hearing intact - Neck Neck: supple, normal ROM - Respiratory Respiratory effort: normal Extremities: abnormal - Gastrointestinal General gastrointestinal: Present: deferred - Genitourinary Male genitourinary: deferred - Psychiatric Psychiatric: appropriate mood/affect, cooperative - Labs CBC & Chem 7: 08/31/20 07:16 09/01/20 05:04 Labs: Abnormal lab results 08/31/20 08/31/20 08/31/20 Range/Units 10:20 11:59 16:28 BUN (9-20) mg/dL Creatinine (0.8-1.3) mg/dL POC Glucose 122 H 138 H 193 H (70-105) mg/dL Calcium (8.4-10.2) mg/dL 08/31/20 09/01/20 Range/Units 21:13 05:04 BUN 7 L (9-20) mg/dL Creatinine 0.7 L (0.8-1.3) mg/dL POC Glucose 116 H (70-105) mg/dL Calcium 8.0 L (8.4-10.2) mg/dL Medications & Allergies - Medications Allergies/Adverse Reactions: Allergies No Known Allergies Allergy (Unverified 01/05/19 16:31) Home Medications: Home Medications Medication Instructions Recorded Confirmed Last Taken Type Ibuprofen [Motrin] 800 mg PO Q8HR PRN #30 tablet 01/05/19 08/31/20 Unknown Rx traMADoL [Ultram] 50 mg PO Q6HR PRN #10 tablet 01/05/19 08/31/20 Unknown Rx Ibuprofen [Motrin 800 MG tab] 800 mg PO Q8HR PRN #20 tablet 08/14/20 08/31/20 Unknown Rx Sulfamethoxazole/Trimethoprim 1 each PO BID #20 tablet 08/14/20 08/31/20 Unknown Rx [Bactrim DS TAB] levoFLOXacin [Levaquin] 750 mg PO QDAY #10 tablet 08/14/20 08/31/20 Unknown Rx oxyCODONE /ACETAMINOPHEN [Percocet 1 tab PO Q6HR PRN #12 tablet 08/14/20 Unknown Rx 5/325] Active Medications: Generic Name Dose Route Start Last Admin Trade Name Freq PRN Reason Stop Dose Admin Acetaminophen 650 mg 08/29/20 01:31 Acetaminophen 325 Mg Tab PO Q4H PRN Pain MILD(1-3)/Fever >100.5/[place] Aspirin 81 mg 08/29/20 18:00 09/01/20 09:13 Aspirin Ec 81 Mg Tab PO 81 mg QDAY NOAH Administration Clopidogrel Bisulfate 75 mg 08/30/20 10:00 09/01/20 09:13 Clopidogrel 75 Mg Tab PO 75 mg QDAY NOAH Administration Docusate Sodium 100 mg 08/31/20 10:00 09/01/20 09:13 Docusate Sodium 100 Mg Cap PO Not Given BID NOAH Famotidine 20 mg 08/30/20 10:00 09/01/20 09:13 Famotidine 20 Mg Tab PO 20 mg BID NOAH Administration Heparin Sodium (Porcine) 5,000 unit 08/29/20 10:00 09/01/20 09:11 Heparin 5,000 Unit/1 Ml Vial SUB-Q Not Given Q12HR NOAH Hydromorphone HCl 0.5 mg 08/29/20 01:31 09/01/20 06:50 Hydromorphone 1 Mg/1 Ml Inj IV 0.5 mg Q3H PRN Administration Pain , Severe (7-10) Sodium Chloride 1,000 mls @ 75 mls/hr 08/29/20 01:45 09/01/20 04:33 Nacl 0.9% 1000 Ml IV 75 mls/hr DIRECT NOAH Administration Ampicillin Sodium/Sulbactam Sodium 3 gm in 100 mls @ 100 mls/hr 08/29/20 02:00 09/01/20 06:07 Unasyn/Ns 3 Gm/100 Ml IV 100 mls/hr Q6HR NOAH Administration Protocol Vancomycin HCl 1,250 mg/ 275 mls @ 166.667 mls/hr 08/30/20 10:00 09/01/20 09:13 Sodium Chloride IV 166.667 mls/hr Q12HR NOAH Administration Lactated Ringer's 1,000 mls @ 100 mls/hr 08/31/20 10:45 08/31/20 10:30 Lactated Ringers IV 09/01/20 10:44 100 mls/hr DIRECT NOAH Administration Ibuprofen 800 mg 08/29/20 01:30 Ibuprofen 800 Mg Tab PO Q8H PRN Pain, Moderate (4-6) Insulin Human Isoph/Insulin Regular 20 unit 08/29/20 08:00 09/01/20 09:14 Insulin Nph/Regular 70/30 Inj SUB-Q 20 unit BIDDIAB NOAH Administration Insulin Human Lispro 0 unit 08/29/20 07:30 09/01/20 07:36 Insulin Lispro 100 Unit/Ml SUB-Q Not Given ACHS [facility] Protocol Metoclopramide HCl 10 mg 08/29/20 01:31 Metoclopramide 10 Mg/2 Ml Inj IV Q6H PRN Nausea And Vomiting Ondansetron HCl 4 mg 08/29/20 01:31 08/29/20 03:58 Ondansetron 4 Mg/2 Ml Inj IV 4 mg Q8H PRN Administration Nausea And Vomiting Oxycodone/Acetaminophen 1 tab 08/29/20 01:31 08/31/20 23:49 Oxycodone /Acetaminophen 5-325mg Tab PO 1 tab Q6H PRN Administration Pain, Moderate (4-6) Sodium Chloride 10 ml 08/29/20 10:00 09/01/20 09:14 Sodium Chloride 0.9% 10 Ml Flush Syringe IV 10 ml BID NOAH Administration Sodium Chloride 10 ml 08/29/20 01:31 Sodium Chloride 0.9% 10 Ml Flush Syringe IV PRN PRN LINE FLUSH
[2020-09-01 10:31] LABS: Hematocrit 28.5 % (35.5-45.6); Hemoglobin 9.8 gm/dl (11.8-15.2)
[2020-09-01] MEDS ORDERED: DEXTROSE 50% IN WATER (25GM) 50 ML SYRINGE IV ONE (14:00)
[2020-09-01] MEDS: oxyCODONE /ACETAMINOPHEN 5-325MG TAB PO PRN (18:41)
[2020-09-01] MEDS: CILOSTAZOL 100 MG TAB PO SCH (22:44)
[2020-09-02 05:32] LABS: Hematocrit 26.8 % (35.5-45.6); Hemoglobin 9.3 gm/dl (11.8-15.2)
[2020-09-02 05:59] LABS: BUN/Creatinine Ratio 6; Blood Urea Nitrogen 4 mg/dL (9-20); Calcium 7.9 mg/dL (8.4-10.2); Hemolysis Index 3
[2020-09-02] MEDS: INSULIN LISPRO 100 UNIT/ML SUB-Q SCH ×4 (08:39→22:23)
[2020-09-02] MEDS: INSULIN NPH/REGULAR 70/30 INJ SUB-Q SCH ×2 (08:40→18:00)
[2020-09-02] MEDS: HYDROmorphone 1 MG/1 ML INJ IV PRN ×3 (08:42→22:29)
[2020-09-02] MEDS: ASPIRIN EC 81 MG TAB PO SCH (08:59)
[2020-09-02] MEDS: HEPARIN 5,000 UNIT/1 ML VIAL SUB-Q SCH ×2 (08:59→22:23)
[2020-09-02] MEDS: CLOPIDOGREL 75 MG TAB PO SCH (08:59)
[2020-09-02] MEDS: FAMOTIDINE 20 MG TAB PO SCH ×2 (08:59→22:23)
[2020-09-02] MEDS: DOCUSATE SODIUM 100 MG CAP PO SCH ×2 (08:59→22:23)
[2020-09-02] MEDS: CILOSTAZOL 100 MG TAB PO SCH ×2 (08:59→22:27)
--- NOTE | 2020-09-02 09:13 | Progress Note ---
Assessment and Plan Assessment and plan: (1) Gangrene of toe of right foot Current Visit: Yes Status: Acute Plan to address problem: Soap to the right foot is gangrenous Needs amputation Patient started on Unasyn and vancomycin (2) PAD (peripheral artery disease) Current Visit: Yes Status: Chronic Plan to address problem: Patient is a smoker ~1 month ago. Right foot dorsalis pedis is occluded. Bilateral lower extremity duplex scan requested vascular surgery consult requested. (3) Uncontrolled diabetes mellitus Current Visit: Yes Status: Chronic Qualifiers: Diabetes mellitus type: type 2 Plan to address problem: Check hemoglobin A1c Accu-Cheks AC at bedtime High-dose sliding scale coverage (4) Hyponatremia Current Visit: Yes Status: Acute Plan to address problem: Very mild Sodium 135 IV normal saline for now (5) DVT prophylaxis Current Visit: Yes Status: Acute Plan to address problem: On heparin and GI prophylaxis 08/29/2020 -Patient has gangrene of the right fourth toes, vascular surgery consulted. Doppler arterial ultrasound of the lower extremities was done and significant for occlusion of the right dorsalis pedis artery. 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 -Patient had vascular work-up and possible amputation. -Patient's hemoglobin A1c is 9.1 which is improved from his previous value of 11.2. Continue with 70/30 20 units twice daily and sliding scale insulin -Hyponatremia; CMP from this morning is pending 08/30/2020 -Discussed with vascular surgeon and he said he will do amputation tomorrow. He had angiogram yesterday 08/31/2020 -Patient had bleeding from the left groin, at the site where angiogram was done. Pressure and sandbag was applied. -Hemoglobin no significant change from yesterday's value -Plan is to do amputation today 09/01/2020 -Status post right fourth toe amputation. Status post vascularization. There is dark discoloration of the tip of the big toe. Was seen by vascular and recommend to monitor. I discontinued IV antibiotics. 09/02/2020; patient does not have any complaints. Patient is hypokalemic and repleted. History Interval history: Patient was seen and evaluated this morning Patient admitted for gangrene of the right fourth toes Status post angiogram and right fourth toe amputation Hospitalist Physical - Physical exam Narrative exam: Not in cardiopulmonary distress. The patient appeared well nourished and normally developed. Vital signs as documented. Head exam is unremarkable. No scleral icterus . Neck is without jugular venous distension, thyromegaly, or carotid bruits. Lungs are clear to auscultation. Cardiac exam reveals regular rate and Rhythm. Abdominal exam reveals normal bowel sounds, nontender, no organomegaly. 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 No focal weakness. - Constitutional Vitals: Temp Pulse Resp BP Pulse Ox 98.8 F 84 18 138/78 97 09/01/20 16:02 09/01/20 16:02 09/01/20 23:13 09/01/20 16:02 09/01/20 16:02 General appearance: Present: no acute distress Results - Labs CBC & Chem 7: 09/02/20 04:53 09/02/20 04:53 Labs: Laboratory Last Values WBC 6.5 K/mm3 (4.5-11.0) 08/31/20 07:16 RBC 3.91 M/mm3 (3.65-5.03) 08/31/20 07:16 Hgb 9.3 gm/dl (11.8-15.2) L 09/02/20 04:53 Hct 26.8 % (35.5-45.6) L 09/02/20 04:53 MCV 85 fl (84-94) 08/31/20 07:16 MCH 30 pg (28-32) 08/31/20 07:16 MCHC 35 % (32-34) H 08/31/20 07:16 RDW 13.6 % (13.2-15.2) 08/31/20 07:16 Plt Count 225 K/mm3 (140-440) 08/31/20 07:16 Lymph % (Auto) 20.5 % (13.4-35.0) 08/31/20 07:16 [facility] % (Auto) 10.2 % (0.0-7.3) H 08/31/20 07:16 Eos % (Auto) 3.5 % (0.0-4.3) 08/31/20 07:16 Baso % (Auto) 0.3 % (0.0-1.8) 08/31/20 07:16 Lymph # (Auto) 1.3 K/mm3 (1.2-5.4) 08/31/20 07:16 [facility] # (Auto) 0.7 K/mm3 (0.0-0.8) 08/31/20 07:16 Eos # (Auto) 0.2 K/mm3 (0.0-0.4) 08/31/20 07:16 Baso # (Auto) 0.0 K/mm3 (0.0-0.1) 08/31/20 07:16 Seg Neutrophils % 65.5 % (40.0-70.0) 08/31/20 07:16 Seg Neutrophils # 4.2 K/mm3 (1.8-7.7) 08/31/20 07:16 ESR 55 mm/Hr (0-20) 08/28/20 15:59 Sodium 139 mmol/L (137-145) 09/02/20 04:53 Potassium 3.5 mmol/L (3.6-5.0) L 09/02/20 04:53 Chloride 106.1 mmol/L (98-107) 09/02/20 04:53 Carbon Dioxide 27 mmol/L (22-30) 09/02/20 04:53 Anion Gap 9 mmol/L 09/02/20 04:53 BUN 4 mg/dL (9-20) L 09/02/20 04:53 Creatinine 0.7 mg/dL (0.8-1.3) L 09/02/20 04:53 Estimated GFR > 60 ml/min 09/02/20 04:53 BUN/Creatinine Ratio 6 % 09/02/20 04:53 Glucose 85 mg/dL (75-100) 09/02/20 04:53 POC Glucose 89 mg/dL (70-105) 09/02/20 07:34 Hemoglobin A1c 9.1 % (4-6) H 08/28/20 15:59 Lactic Acid 1.30 mmol/L (0.7-2.0) 08/28/20 15:59 Calcium 7.9 mg/dL (8.4-10.2) L 09/02/20 04:53 Magnesium 2.10 mg/dL (1.7-2.3) 08/28/20 15:59 Total Bilirubin 0.40 mg/dL (0.1-1.2) 08/30/20 06:16 AST 12 units/L (5-40) 08/30/20 06:16 ALT 11 units/L (7-56) 08/30/20 06:16 Alkaline Phosphatase 89 units/L (35-129) 08/30/20 06:16 Total Creatine Kinase 76 units/L (55-170) 08/28/20 15:59 C-Reactive Protein 0.70 mg/dL (0.00-1.30) 08/28/20 15:59 Total Protein 6.4 g/dL (6.3-8.2) 08/30/20 06:16 Albumin 3.5 g/dL (3.9-5) L 08/30/20 06:16 Albumin/Globulin Ratio 1.2 % 08/30/20 06:16 Microbiology: Microbiology 08/28/20 15:59 Peripheral/Venous Blood Culture - Preliminary NO GROWTH AFTER 4 DAYS 08/28/20 15:59 Peripheral/Venous Blood Culture - Preliminary NO GROWTH AFTER 4 DAYS Mas/IV: Voiding Method Urinal Active Medications - Current Medications Current Medications: Generic Name Dose Route Start Last Admin Trade Name Freq PRN Reason Stop Dose Admin Acetaminophen 650 mg 08/29/20 01:31 Acetaminophen 325 Mg Tab PO Q4H PRN Pain MILD(1-3)/Fever >100.5/[place] Aspirin 81 mg 08/29/20 18:00 09/02/20 08:59 Aspirin Ec 81 Mg Tab PO 81 mg QDAY NOAH Administration Cilostazol 50 mg 09/01/20 22:00 09/02/20 08:59 Cilostazol 100 Mg Tab PO 50 mg BID NOAH Administration Clopidogrel Bisulfate 75 mg 08/30/20 10:00 09/02/20 08:59 Clopidogrel 75 Mg Tab PO 75 mg QDAY NOAH Administration Docusate Sodium 100 mg 08/31/20 10:00 09/02/20 08:59 Docusate Sodium 100 Mg Cap PO 100 mg BID NOAH Administration Famotidine 20 mg 08/30/20 10:00 09/02/20 08:59 Famotidine 20 Mg Tab PO 20 mg BID NOAH Administration Heparin Sodium (Porcine) 5,000 unit 08/29/20 10:00 09/02/20 08:59 Heparin 5,000 Unit/1 Ml Vial SUB-Q Not Given Q12HR [facility] Hydromorphone HCl 0.5 mg 08/29/20 01:31 09/02/20 08:42 Hydromorphone 1 Mg/1 Ml Inj IV 0.5 mg Q3H PRN Administration Pain , Severe (7-10) Sodium Chloride 1,000 mls @ 75 mls/hr 08/29/20 01:45 09/01/20 19:32 Nacl 0.9% 1000 Ml IV 75 mls/hr DIRECT NOAH Administration Ibuprofen 800 mg 08/29/20 01:30 Ibuprofen 800 Mg Tab PO Q8H PRN Pain, Moderate (4-6) Insulin Human Isoph/Insulin Regular 15 unit 09/01/20 17:00 09/02/20 08:40 Insulin Nph/Regular 70/30 Inj SUB-Q Not Given BIDDIAB [facility] Insulin Human Lispro 0 unit 08/29/20 07:30 09/02/20 08:39 Insulin Lispro 100 Unit/Ml SUB-Q Not Given ACHS [facility] Protocol Metoclopramide HCl 10 mg 08/29/20 01:31 Metoclopramide 10 Mg/2 Ml Inj IV Q6H PRN Nausea And Vomiting Ondansetron HCl 4 mg 08/29/20 01:31 08/29/20 03:58 Ondansetron 4 Mg/2 Ml Inj IV 4 mg Q8H PRN Administration Nausea And Vomiting Oxycodone/Acetaminophen 1 tab 08/29/20 01:31 09/01/20 18:41 Oxycodone /Acetaminophen 5-325mg Tab PO 1 tab Q6H PRN Administration Pain, Moderate (4-6) Potassium Chloride 40 meq 09/02/20 09:12 Potassium Chloride Er 20 Meq Tab PO 09/02/20 09:13 ONCE ONE Sodium Chloride 10 ml 08/29/20 10:00 09/02/20 09:00 Sodium Chloride 0.9% 10 Ml Flush Syringe IV 10 ml BID NOAH Administration Sodium Chloride 10 ml 08/29/20 01:31 Sodium Chloride 0.9% 10 Ml Flush Syringe IV PRN PRN LINE FLUSH
--- NOTE | 2020-09-02 09:30 | Progress Note ---
Assessment and Plan Patient awaiting forefoot offloading shoe. Patient will need outpatient podiatry/wound care. No complaints of any pain. Anticipate discharge home tomorrow. Subjective Date of service: 09/02/20 Principal diagnosis: Right fourth toe gangrene Interval history: Patient doing well. No complaints of any pain. His first toe distal eschar is stable in appearance. Objective - Constitutional Vitals: Vital Signs - 12hr 09/01/20 09/01/20 22:43 23:13 Respiratory 20 18 Rate General appearance: Present: no acute distress - EENT Eyes: EOM intact ENT: hearing intact - Neck Neck: supple, normal ROM - Respiratory Respiratory effort: normal Extremities: abnormal (Fourth toe amputation, first toe eschar) - Gastrointestinal General gastrointestinal: Present: deferred Rectal Exam: deferred - Genitourinary Male genitourinary: deferred - Psychiatric Psychiatric: appropriate mood/affect, cooperative - Labs CBC & Chem 7: 09/02/20 04:53 09/02/20 04:53 Labs: Abnormal lab results 09/01/20 09/01/20 09/01/20 Range/Units 10:10 11:30 13:43 Hgb 9.8 L (11.8-15.2) gm/dl Hct 28.5 L (35.5-45.6) % Potassium (3.6-5.0) mmol/L BUN (9-20) mg/dL Creatinine (0.8-1.3) mg/dL POC Glucose 49 L 123 H (70-105) mg/dL Calcium (8.4-10.2) mg/dL 09/01/20 09/02/20 09/02/20 Range/Units 15:59 04:53 04:53 Hgb 9.3 L (11.8-15.2) gm/dl Hct 26.8 L (35.5-45.6) % Potassium 3.5 L (3.6-5.0) mmol/L BUN 4 L (9-20) mg/dL Creatinine 0.7 L (0.8-1.3) mg/dL POC Glucose 67 L (70-105) mg/dL Calcium 7.9 L (8.4-10.2) mg/dL Medications & Allergies - Medications Allergies/Adverse Reactions: Allergies No Known Allergies Allergy (Unverified 01/05/19 16:31) Home Medications: Home Medications Medication Instructions Recorded Confirmed Last Taken Type Ibuprofen [Motrin] 800 mg PO Q8HR PRN #30 tablet 01/05/19 08/31/20 Unknown Rx traMADoL [Ultram] 50 mg PO Q6HR PRN #10 tablet 01/05/19 08/31/20 Unknown Rx Ibuprofen [Motrin 800 MG tab] 800 mg PO Q8HR PRN #20 tablet 08/14/20 08/31/20 Unknown Rx Sulfamethoxazole/Trimethoprim 1 each PO BID #20 tablet 08/14/20 08/31/20 Unknown Rx [Bactrim DS TAB] levoFLOXacin [Levaquin] 750 mg PO QDAY #10 tablet 08/14/20 08/31/20 Unknown Rx oxyCODONE /ACETAMINOPHEN [Percocet 1 tab PO Q6HR PRN #12 tablet 08/14/20 08/31/20 Unknown Rx 5/325] Active Medications: Generic Name Dose Route Start Last Admin Trade Name Freq PRN Reason Stop Dose Admin Acetaminophen 650 mg 08/29/20 01:31 Acetaminophen 325 Mg Tab PO Q4H PRN Pain MILD(1-3)/Fever >100.5/BERNSTEIN Aspirin 81 mg 08/29/20 18:00 09/02/20 08:59 Aspirin Ec 81 Mg Tab PO 81 mg QDAY NOAH Administration Cilostazol 50 mg 09/01/20 22:00 09/02/20 08:59 Cilostazol 100 Mg Tab PO 50 mg BID NOAH Administration Clopidogrel Bisulfate 75 mg 08/30/20 10:00 09/02/20 08:59 Clopidogrel 75 Mg Tab PO 75 mg QDAY NOAH Administration Docusate Sodium 100 mg 08/31/20 10:00 09/02/20 08:59 Docusate Sodium 100 Mg Cap PO 100 mg BID NOAH Administration Famotidine 20 mg 08/30/20 10:00 09/02/20 08:59 Famotidine 20 Mg Tab PO 20 mg BID NOAH Administration Heparin Sodium (Porcine) 5,000 unit 08/29/20 10:00 09/02/20 08:59 Heparin 5,000 Unit/1 Ml Vial SUB-Q Not Given Q12HR NOAH Hydromorphone HCl 0.5 mg 08/29/20 01:31 09/02/20 08:42 Hydromorphone 1 Mg/1 Ml Inj IV 0.5 mg Q3H PRN Administration Pain , Severe (7-10) Sodium Chloride 1,000 mls @ 75 mls/hr 08/29/20 01:45 09/01/20 19:32 Nacl 0.9% 1000 Ml IV 75 mls/hr DIRECT NOAH Administration Ibuprofen 800 mg 08/29/20 01:30 Ibuprofen 800 Mg Tab PO Q8H PRN Pain, Moderate (4-6) Insulin Human Isoph/Insulin Regular 15 unit 09/01/20 17:00 09/02/20 08:40 Insulin Nph/Regular 70/30 Inj SUB-Q Not Given [facility] Insulin Human Lispro 0 unit 08/29/20 07:30 09/02/20 08:39 Insulin Lispro 100 Unit/Ml SUB-Q Not Given [facility] Protocol Metoclopramide HCl 10 mg 08/29/20 01:31 Metoclopramide 10 Mg/2 Ml Inj IV Q6H PRN Nausea And Vomiting Ondansetron HCl 4 mg 08/29/20 01:31 08/29/20 03:58 Ondansetron 4 Mg/2 Ml Inj IV 4 mg Q8H PRN Administration Nausea And Vomiting Oxycodone/Acetaminophen 1 tab 08/29/20 01:31 09/01/20 18:41 Oxycodone /Acetaminophen 5-325mg Tab PO 1 tab Q6H PRN Administration Pain, Moderate (4-6) Potassium Chloride 40 meq 09/02/20 10:00 Potassium Chloride Er 20 Meq Tab PO 09/02/20 10:01 ONCE ONE Sodium Chloride 10 ml 08/29/20 10:00 09/02/20 09:00 Sodium Chloride 0.9% 10 Ml Flush Syringe IV 10 ml BID NOHA Administration Sodium Chloride 10 ml 08/29/20 01:31 Sodium Chloride 0.9% 10 Ml Flush Syringe IV PRN PRN LINE FLUSH
[2020-09-02] MEDS ORDERED: POTASSIUM CHLORIDE ER 20 MEQ TAB PO ONE (10:00)
[2020-09-03 05:45] LABS: BUN/Creatinine Ratio 8; Blood Urea Nitrogen 6 mg/dL (9-20); Calcium 8.3 mg/dL (8.4-10.2); Hemolysis Index 2
[2020-09-03] MEDS: INSULIN LISPRO 100 UNIT/ML SUB-Q SCH (07:30)
[2020-09-03] MEDS: INSULIN NPH/REGULAR 70/30 INJ SUB-Q SCH (08:00)
[2020-09-03] MEDS: oxyCODONE /ACETAMINOPHEN 5-325MG TAB PO PRN (08:32)
[2020-09-03] MEDS: DOCUSATE SODIUM 100 MG CAP PO SCH (10:05)
[2020-09-03] MEDS: HEPARIN 5,000 UNIT/1 ML VIAL SUB-Q SCH (10:05)
[2020-09-03] MEDS: FAMOTIDINE 20 MG TAB PO SCH (10:05)
[2020-09-03] MEDS: ASPIRIN EC 81 MG TAB PO SCH (10:05)
[2020-09-03] MEDS: CILOSTAZOL 100 MG TAB PO SCH (10:06)
[2020-09-03] MEDS: CLOPIDOGREL 75 MG TAB PO SCH (10:06)
--- NOTE | 2020-09-03 11:35 | Discharge Summary ---
Providers - Providers Date of Admission: 08/30/20 08:55 Date of discharge: 09/03/20 Attending physician: CORRINE MCCLELLAN MD 08/28/20 13:22 Consult to Physician [CONS] Urgent Comment: Consulting Provider: CHANG CORTEZ Physician Instructions: Reason For Exam: necrotic wound 08/28/20 18:26 Consult to Physician [CONS] Urgent Comment: Consulting Provider: JOSE LOO Physician Instructions: Reason For Exam: pad 09/01/20 10:10 Consult to Case Management [CONS] Routine Services Needed at Discharge: Home Health Services DME Equipment Notified:: CM Comment:: need outpatient wound care and forefoot offloading shoe at discharge Consult to Employment Supervisor [CONS] Routine Reason For Exam: forewfoot offloading shoe 09/02/20 09:14 Physical Therapy Evaluation and Treat [CONS] Routine Comment: Reason For Exam: s/p right fourth toe amputation Primary care physician: LACE ROLLER Hospitalization Reason for admission: Right fourth toe gangrene, diabetes mellitus, peripheral arterial disease Condition: Stable Procedures: Right fourth toe amputation Angiography and revascularization of the left leg Hospital course: History of present illness: 54-year-old -[place] male comes in for right foot infection involving the right fourth toe. Black in color. Patient was recently seen in the emergency room but declined admission. Was discharged on Levaquin and Bactrim. The right fourth toe was worsened and is dark black in color and looked gangrenous the whole fourth toe on the right foot. Pulses are diminished in the right foot. Patient is a smoker and recently 1 month ago. Patient also has uncontrolled diabetes. Noncompliant with medications. No hypertension. Patient has not followed up with any vascular surgeon. His hemoglobin A1c was 10.9 in 2019. No fever or chills. Claudication pain present. Hospital course (1) Gangrene of toe of right foot Current Visit: Yes Status: Acute Plan to address problem: Soap to the right foot is gangrenous Needs amputation Patient started on Unasyn and vancomycin (2) PAD (peripheral artery disease) Current Visit: Yes Status: Chronic Plan to address problem: Patient is a smoker ~1 month ago. Right foot dorsalis pedis is occluded. Bilateral lower extremity duplex scan requested vascular surgery consult requested. (3) Uncontrolled diabetes mellitus Current Visit: Yes Status: Chronic Qualifiers: Diabetes mellitus type: type 2 Plan to address problem: Check hemoglobin A1c Accu-Cheks AC at bedtime High-dose sliding scale coverage (4) Hyponatremia Current Visit: Yes Status: Acute Plan to address problem: Very mild Sodium 135 IV normal saline for now (5) DVT prophylaxis Current Visit: Yes Status: Acute Plan to address problem: On heparin and GI prophylaxis 08/29/2020 -Patient has gangrene of the right fourth toes, vascular surgery consulted. Doppler arterial ultrasound of the lower extremities was done and significant for occlusion of the right dorsalis pedis artery. 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 -Patient had vascular work-up and possible amputation. -Patient's hemoglobin A1c is 9.1 which is improved from his previous value of 11.2. Continue with 70/30 20 units twice daily and sliding scale insulin -Hyponatremia; CMP from this morning is pending 08/30/2020 -Discussed with vascular surgeon and he said he will do amputation tomorrow. He had angiogram yesterday 08/31/2020 -Patient had bleeding from the left groin, at the site where angiogram was done. Pressure and sandbag was applied. -Hemoglobin no significant change from yesterday's value -Plan is to do amputation today 09/01/2020 -Status post right fourth toe amputation. Status post vascularization. There is dark discoloration of the tip of the big toe. Was seen by vascular and recommend to monitor. I discontinued IV antibiotics. 09/02/2020; patient does not have any complaints. Patient is hypokalemic and repleted. 09/03/2020; patient was seen and evaluated this morning and patient does not have any complaints. Patient's hemoglobin A1c was 9.1 and patient stated he was not taking his Metformin but after extensive counseling patient said he would be compliant with his Metformin and given a prescription. Status post right fourth amputation patient will follow with vascular surgery Dr. Jacobo as an outpatient. Patient has also some ulceration on the right big toe and advised to have follow-up with podiatry as an outpatient and patient said he will find 1 as an outpatient. Patient was on aspirin Plavix. I have also given a prescription for all his medications. Patient was advised to have follow-up with his primary care physician. I also give a prescription for right foot forefoot offloading shoes. Disposition: [id number] TO HOME OR SELFCARE Final Discharge Diagnosis (Prints w/discharge instructions): Right fourth toe gangrene. Uncontrolled diabetes mellitus. Diabetic neuropathy. Status post right fourth toe amputation. Medication noncompliance. Hypertension. Peripheral arterial disease Time spent for discharge: 35-minutes - Discharge Diagnoses (1) Gangrene of toe of right foot Status: Acute (2) Hyperglycemia Status: Acute (3) Hyponatremia Status: Acute (4) Necrosis of toe Status: Acute (5) PAD (peripheral artery disease) Status: Chronic (6) Uncontrolled diabetes mellitus Status: Chronic Qualifiers: Diabetes mellitus type: type 2 Core Measure Documentation - Palliative Care Palliative Care/ Comfort Measures: Not Applicable - Core Measures Any of the following diagnoses?: none Exam - Physical Exam Narrative exam: Not in cardiopulmonary distress. The patient appeared well nourished and normally developed. Vital signs as documented. Head exam is unremarkable. No scleral icterus . Neck is without jugular venous distension, thyromegaly, or carotid bruits. Lungs are clear to auscultation. Cardiac exam reveals regular rate and Rhythm. Abdominal exam reveals normal bowel sounds, nontender, no organomegaly. Extremities status post right 4th toe amputation [employer] DYER: Alert and oriented 3. No focal weakness. - Constitutional Vitals: Temp Pulse Resp BP Pulse Ox 99.5 F 92 H 20 149/83 99 09/02/20 21:36 09/02/20 21:36 09/02/20 21:36 09/02/20 21:36 09/02/20 21:36 Plan Activity: advance as tolerated Weight Bearing Status: Weight Bear as Tolerated Diet: low salt, diabetic Additional Instructions: Patient advised to have follow-up with podiatry and wound care as an outpatient Follow up with: ODALYS BATISTA MD [Primary Care Provider] - 3-5 Days DEMARIO JACOBO MD [Staff Physician] - 14 Days Prescriptions: Aspirin EC [Halfprin EC] 81 mg PO QDAY #30 tablet Metformin HCl [metFORMIN] 1,000 mg PO BID #60 tablet Ibuprofen [Motrin 800 MG tab] 800 mg PO Q8HR PRN #20 tablet PRN Reason: Pain, Moderate (4-6) Clopidogrel [Plavix] 75 mg PO QDAY #60 tablet cilostazoL [Pletal] 50 mg PO BID #60 tablet traMADoL [Ultram 50 MG tab] 50 mg PO Q6HR PRN #10 tablet PRN Reason: Pain
[2020-09-03 13:20] VITALS: BP 163/84
== END 2020-09-03 13:15 | disposition home or self-care (01) | DRG 617 ==
LOC: ED 08:38 → 3A 13:57 → OBSVTOIN 08-30 08:55 → 3A 08-30 12:55
PROVIDERS: ADMIT Internal Medicine; ATTEND Internal Medicine
PROC: B41D1ZZ Fluoroscopy of Aorta and Bilateral Lower Extremity Arteries using Low Osmolar Contrast (ICD-10-PCS; principal; 2020-08-29)
PROC: 04CP3ZZ Extirpation of Matter from Right Anterior Tibial Artery, Percutaneous Approach (ICD-10-PCS; 2020-08-29)
PROC: 047P3Z1 Dilation of Right Anterior Tibial Artery using Drug-Coated Balloon, Percutaneous Approach (ICD-10-PCS; 2020-08-29)
PROC: 047S3ZZ Dilation of Left Posterior Tibial Artery, Percutaneous Approach (ICD-10-PCS; 2020-08-29)
PROC: B41J1ZZ Fluoroscopy of Other Lower Arteries using Low Osmolar Contrast (ICD-10-PCS; 2020-08-29)
PROC: 0Y6V0Z3 Detachment at Right 4th Toe, Low, Open Approach (ICD-10-PCS; 2020-08-31)
DX: E11.628 Type 2 diabetes mellitus with other skin complications (principal); I96 Gangrene, not elsewhere classified; E87.1 Hypo-osmolality and hyponatremia; F17.200 Nicotine dependence, unspecified, uncomplicated; E11.65 Type 2 diabetes mellitus with hyperglycemia; E11.51 Type 2 diabetes mellitus with diabetic peripheral angiopathy without gangrene; E11.42 Type 2 diabetes mellitus with diabetic polyneuropathy; Z79.899 Other long term (current) drug therapy; Z79.891 Long term (current) use of opiate analgesic; Z79.01 Long term (current) use of anticoagulants; Z91.19 Patient's noncompliance with other medical treatment and regimen
CPT/HCPCS: 36415; 37229; 37233; 75625; 75710; 76937; 80048; 80053; 82140; 82550; 82962; 83036; 83735; 85014; 85018; 85025; 85652; 86140; 87040; 88305; 88311; 96365; 96367; 96375; G0378; C1724; C1725; C1760; C1769; C1887; C2623; J0295; J1170; J1200; J1644; J1815; J2250; J2270; J2405; J2704; J2997; J3010; J3370; J7030; J7040; J7050; J7120; Q9967

== ENCOUNTER 2020-10-10 14:17 | Observation (INO) | payer SELFPAY ==
--- NOTE | 2020-10-10 17:23 | XRay Report ---
Right foot 3 views INDICATION: Amputation FINDINGS: Postoperative change with amputation of the fourth toe just distal to the proximal phalanx. Small irregularity in the cortex in this area however this may be postoperative. Remaining MTP joint s and IP joints appear normal. If there is concern for osteomyelitis MRI is recommended. Signer Name: Parminder Ramesh MD Signed: 10/10/2020 5:19 PM Workstation Name: [id number]
[2020-10-10 18:15] LABS: Basophils % (Auto) 0.3 % (0.0-1.8); Eosinophils # (Auto) 0.1 K/mm3 (0.0-0.4); Eosinophils % (Auto) 1.4 % (0.0-4.3); Hematocrit 41.4 % (35.5-45.6); Hemoglobin 13.9 gm/dl (11.8-15.2); Lymphocytes # (Auto) 1.5 K/mm3 (1.2-5.4); Lymphocytes % (Auto) 26.1 % (13.4-35.0); Mean Corpuscular HGB Conc 34 % (32-34); Mean Corpuscular Volume 87 fl (84-94); Monocytes # (Auto) 0.5 K/mm3 (0.0-0.8); Monocytes % (Auto) 8.5 % (0.0-7.3); Platelet Count 255 K/mm3 (140-440); Red Blood Count 4.76 M/mm3 (3.65-5.03); Red Cell Distribution Width 14.5 % (13.2-15.2)
[2020-10-10] MEDS ORDERED: oxyCODONE /ACETAMINOPHEN 5-325MG TAB PO ONE (18:15)
--- NOTE | 2020-10-10 18:23 | Emergency Department Report ---
ED Extremity Problem HPI - General Chief complaint: Extremity Injury, Lower Stated complaint: FOOT PAIN Time Seen by Provider: 10/10/20 15:47 Source: patient Mode of arrival: Ambulatory Limitations: No Limitations - History of Present Illness Initial comments: Patient is a 55-year-old male presents emergency room with complaints of right foot swelling and pain for the last week. Patient had a revascularization procedure and a right fourth toe amputation at this hospital facility by Dr. Razo, vascular surgeon on 08/29/20. Patient states he has not followed up in office. He states occasionally he does have a foul odor drainage. He denies any fever, nausea, vomiting, diarrhea, chills, weakness. He has not been following up with wound care and did not follow-up postop with a vascular surgeon. He has no allergies to medicines. - Related Data Previous Rx's Medication Instructions Recorded Last Taken Type oxyCODONE /ACETAMINOPHEN [Percocet 1 tab PO Q6HR PRN #12 tablet 08/14/20 Unknown Rx 5/325 mg] Aspirin EC [Halfprin EC] 81 mg PO QDAY #30 tablet 09/03/20 Unknown Rx Clopidogrel [Plavix] 75 mg PO QDAY #60 tablet 09/03/20 Unknown Rx Ibuprofen [Motrin 800 MG tab] 800 mg PO Q8HR PRN #20 tablet 09/03/20 Unknown Rx Metformin HCl [metFORMIN] 1,000 mg PO BID #60 tablet 09/03/20 Unknown Rx cilostazoL [Pletal] 50 mg PO BID #60 tablet 09/03/20 Unknown Rx traMADoL [Ultram 50 MG tab] 50 mg PO Q6HR PRN #10 tablet 09/03/20 Unknown Rx Allergies Allergy/AdvReac Type Severity Reaction Status Date / Time No Known Allergies Allergy Verified 10/10/20 14:56 ED Review of Systems ROS: Stated complaint: FOOT PAIN Other details as noted in HPI Comment: All other systems reviewed and negative ED Past Medical Hx - Past Medical History Hx Diabetes: Yes Hx Sickle Cell Disease: No Hx COPD: No Additional medical history: SOB WITH WALKING. VASCULAR PROBLEMS - Surgical History Additional Surgical History: RIGHT TOE AMPUATION - Social History Smoking Status: Current Some Day Smoker Substance Use Type: Marijuana - Medications Home Medications: Home Medications Medication Instructions Recorded Confirmed Last Taken Type oxyCODONE /ACETAMINOPHEN [Percocet 1 tab PO Q6HR PRN #12 tablet 08/14/20 08/31/20 Unknown Rx 5/325 mg] Aspirin EC [Halfprin EC] 81 mg PO QDAY #30 tablet 09/03/20 Unknown Rx Clopidogrel [Plavix] 75 mg PO QDAY #60 tablet 09/03/20 Unknown Rx Ibuprofen [Motrin 800 MG tab] 800 mg PO Q8HR PRN #20 tablet 09/03/20 Unknown Rx Metformin HCl [metFORMIN] 1,000 mg PO BID #60 tablet 09/03/20 Unknown Rx cilostazoL [Pletal] 50 mg PO BID #60 tablet 09/03/20 Unknown Rx traMADoL [Ultram 50 MG tab] 50 mg PO Q6HR PRN #10 tablet 09/03/20 Unknown Rx ED Physical Exam - General Limitations: No Limitations General appearance: alert, in no apparent distress - Head Head exam: Present: atraumatic, normocephalic - Eye Eye exam: Present: normal appearance - ENT ENT exam: Present: mucous membranes moist - Respiratory Respiratory exam: Absent: respiratory distress, accessory muscle use - Extremities Exam Extremities exam: Present: full ROM (2+ dp pulse to the right foot), other (there is a 2-3 cm opening present in the region where there has been an amputation to the right 4th toe, there are sutures present in this region, there is mild swelling to the distal end of the right foot with mild discoloration of the right small toe, no erythema, no drainage, no increased warmth) - Neurological Exam Neurological exam: Present: alert, oriented X3 - Psychiatric Psychiatric exam: Present: normal affect, normal mood - Skin Skin exam: Present: warm, dry ED Course Vital Signs 10/10/20 10/10/20 15:00 18:34 Temperature 99.3 F Pulse Rate 108 H Respiratory 20 18 Rate Blood Pressure 117/95 O2 Sat by Pulse 99 Oximetry - Consultations Consultation #1: 10/10/20 18:[address] Pagan, vascular surgery regarding patient presentation and results, he advised to admit to hospitalist service order broad-spectrum antibiotics and they will consult on patient 10/10/20 18:[address] Whitfield, he will evaluate pt in ED 10/10/20 19:[address] whitfield, hospitalist, he will accept and resume care of patient, will admit to hospitalist service, advised to bridge patient to the surgical floor ED Medical Decision Making - Lab Data Result diagrams: 10/10/20 17:46 10/10/20 17:46 Lab Results 10/10/20 10/10/20 10/10/20 Range/Units 17:46 17:46 17:46 WBC 5.9 (4.5-11.0) K/mm3 RBC 4.76 (3.65-5.03) M/mm3 Hgb 13.9 (11.8-15.2) gm/dl Hct 41.4 (35.5-45.6) % MCV 87 (84-94) fl MCH 29 (28-32) pg MCHC 34 (32-34) % RDW 14.5 (13.2-15.2) % Plt Count 255 (140-440) K/mm3 Lymph % (Auto) 26.1 (13.4-35.0) % [place] % (Auto) 8.5 H (0.0-7.3) % Eos % (Auto) 1.4 (0.0-4.3) % Baso % (Auto) 0.3 (0.0-1.8) % Lymph # (Auto) 1.5 (1.2-5.4) K/mm3 [place] # (Auto) 0.5 (0.0-0.8) K/mm3 Eos # (Auto) 0.1 (0.0-0.4) K/mm3 Baso # (Auto) 0.0 (0.0-0.1) K/mm3 Seg Neutrophils % 63.7 (40.0-70.0) % Seg Neutrophils # 3.7 (1.8-7.7) K/mm3 Sodium 139 (137-145) mmol/L Potassium 3.7 (3.6-5.0) mmol/L Chloride 104.3 (98-107) mmol/L Carbon Dioxide 24 (22-30) mmol/L Anion Gap 14 mmol/L BUN 12 (9-20) mg/dL Creatinine 0.8 (0.8-1.3) mg/dL Estimated GFR > 60 ml/min BUN/Creatinine Ratio 15 % Glucose 154 H (75-100) mg/dL Lactic Acid 1.60 (0.7-2.0) mmol/L Calcium 9.1 (8.4-10.2) mg/dL Total Bilirubin 0.70 (0.1-1.2) mg/dL AST 13 (5-40) units/L ALT 15 (7-56) units/L Alkaline Phosphatase 91 (35-129) units/L Total Protein 7.7 (6.3-8.2) g/dL Albumin 4.1 (3.9-5) g/dL Albumin/Globulin Ratio 1.1 % - Radiology Data Radiology results: report reviewed Ordering Physician: GARRETT DOLAN Date of Service: 10/10/20 Procedure(s): XR foot 3+V RT Accession Number(s): [id number] cc: GARRETT DOLAN Fluoro Time In Minutes: Right foot 3 views INDICATION: Amputation FINDINGS: Postoperative change with amputation of the fourth toe just distal to the proximal phalanx. Small irregularity in the cortex in this area however this may be postoperative. Remaining MTP joints and IP joints appear normal. If there is concern for osteomyelitis MRI is recommended. Signer Name: Parminder Ramesh MD Signed: 10/10/2020 5:19 PM Workstation Name: [email or web address] Transcribed By: CALI Dictated By: MARILU RAMESH MD Electronically Authenticated By: MARILU RAMESH MD Signed Date/Time: 10/10/201718 DD/ 17 TD/TT: Print - Medical Decision Making Patient is a 55-year-old male presents emergency room with complaints of right foot swelling and pain for the last week. Patient had a revascularization procedure and a right fourth toe amputation at this hospital facility by Dr. Razo, vascular surgeon on 08/29/20. Patient states he has not followed up in office. He states occasionally he does have a foul odor drainage. He denies any fever, nausea, vomiting, diarrhea, chills, weakness. He has not been following up with wound care and did not follow-up postop with a vascular surgeon. He has no allergies to medicines. Vitals with mild tachycardia, otherwise stable. On exam:there is a 2-3 cm opening present in the region where there has been an amputation to the right 4th toe, there are sutures present in this region, there is mild swelling to the distal end of the right foot with mi ld discoloration of the right small toe, no erythema, no drainage, no increased warmth, 2+ dp pulse to the right foot. XR right foot: FINDINGS: Postoperative change with amputation of the fourth toe just distal to the proximal phalanx. Small irregularity in the cortex in this area however this may be postoperative. Remaining MTP joints and IP joints appear normal. If there is concern for osteomyelitis MRI is recommended. Labs are stable. Discussed case with Dr. Leyva, ER attending who advised to speak with vascular. spoke with Dr. Pagan, vascular surgery regarding patient presentation and results, he advised to admit to hospitalist service order broad-spectrum antibiotics and they will consult on patient spoke with DR. whitfield, hospitalist, he will accept and resume care of patient, will admit to hospitalist service, advised to bridge patient to the surgical floor. Dr. Leyva, ER attending agreeable with plan. Discussed all results with patient and answer questions, patient is agreeable with admission. Patient given IV vancomycin and Zosyn. Critical care attestation.: If time is entered above; I have spent that time in minutes in the direct care of this critically ill patient, excluding procedure time. ED Disposition Clinical Impression: Non-healing wound of amputation stump Foot ulcer Qualifiers: Laterality: right Non-pressure ulcer stage: unspecified non-pressure ulcer stage Qualified Code(s): L97.519 - Non-pressure chronic ulcer of other part of right foot with unspecified severity Disposition: OP ADMIT IP TO THIS HOSP Is pt being admited?: Yes Does the pt Need Aspirin: No Condition: Fair Time of Disposition: 19:01
[2020-10-10 18:28] LABS: Alanine Aminotransferase 15 units/L (7-56); Albumin 4.1 g/dL (3.9-5); BUN/Creatinine Ratio 15; Blood Urea Nitrogen 12 mg/dL (9-20); Calcium 9.1 mg/dL (8.4-10.2); Hemolysis Index 3
[2020-10-10] MEDS ORDERED: PIPERACIL/TAZOBACTA 4.5/NS 100 4.5 GM/100 ML VIAL IV ONE (18:51)
[2020-10-10] MEDS ORDERED: VANCOMYCIN PHARMACY TO DOSE IV SCH ×2 (19:00→23:45)
[2020-10-10] MEDS ORDERED: VANCOMYCIN 1,500 MG in SODIUM CHLORIDE 0.9% 500 ML 500 ML IV ONE (20:00)
--- NOTE | 2020-10-10 22:54 | History and Physical Report ---
History of Present Illness Date of examination: 10/10/20 Date of admission: 10/10/20 19:01 Chief complaint: Infection of the right foot between third and fifth toes History of present illness: 55-year-old -[place] male with history of uncontrolled diabetes and severe peripheral arterial disease was recently admitted in August and was discharged on 09/03/2020 after amputation of the fourth toe for gangrenous changes and revascularization of the occluded dorsalis pedis. Patient was having slight gangrene of the right great toe and the right fifth toe. Patient will discharge to follow-up with vascular surgery and ensuring that there the right toe and the fifth toe improved after revascularization. Patient was also referred to wound care for the ulcer between the third and fifth toes with the fourth toe was removed. Patient comes back because he did not follow with wound clinic and suspected infection within the right hand third and fifth toe. In the emergency room patient was found 2 cm x 1 cm ulcer between the right third and fifth toe and slight drainage present. Right fifth toe is slightly gangrenous at the tip. No fever or chills. No pain. - Past Medical History --Diabetes: Yes Additional medical history: SOB WITH WALKING. VASCULAR PROBLEMS - Surgical History Additional Surgical History: RIGHT TOE AMPUATION - Social History Smoking Status: Current Some Day Smoker Substance Use Type: Marijuana - Medications Home Medications: Home Medications Medication Instructions Recorded Confirmed Last Taken Type oxyCODONE /ACETAMINOPHEN [Percocet 1 tab PO Q6HR PRN #12 tablet 08/14/20 08/31/20 Unknown Rx 5/325 mg] Aspirin EC [Halfprin EC] 81 mg PO QDAY #30 tablet 09/03/20 Unknown Rx Clopidogrel [Plavix] 75 mg PO QDAY #60 tablet 09/03/20 Unknown Rx Ibuprofen [Motrin 800 MG tab] 800 mg PO Q8HR PRN #20 tablet 09/03/20 Unknown Rx Metformin HCl [metFORMIN] 1,000 mg PO BID #60 tablet 09/03/20 Unknown Rx cilostazoL [Pletal] 50 mg PO BID #60 tablet 09/03/20 Unknown Rx traMADoL [Ultram 50 MG tab] 50 mg PO Q6HR PRN #10 tablet 09/03/20 Unknown Rx Review of Systems ROS: Skin ulcerated in the right third and fifth toe with small amount of drainage Constitutional no weight loss or weight gain no fever or chills HEENT no sore throat no post nasal drip no diplopia Neck no neck stiffness no lymph gland enlargement Chest and lungs no shortness of breath cough or wheezing CVS no chest pain no diaphoresis no palpitations GI no nausea no vomiting no diarrhea Genitourinary system no dysuria no flank pain Musculoskeletal system no muscle pains no joint pains 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 no syncope no seizures Psychiatric no depression no homicidal or suicidal tendencies Hematologic no lymphedema or bruising Endocrine no polydipsia no polyuria no cold intolerance no heat intolerance Stated complaint: FOOT PAIN Other details as noted in HPI Comment: All other systems reviewed and negative Medications and Allergies Allergies Allergy/AdvReac Type Severity Reaction Status Date / Time No Known Allergies Allergy Verified 10/10/20 14:56 Home Medications Medication Instructions Recorded Confirmed Last Taken Type oxyCODONE /ACETAMINOPHEN [Percocet 1 tab PO Q6HR PRN #12 tablet 08/14/20 10/11/20 2 Days Ago Rx 5/325 mg] ~10/09/20 Aspirin EC [Halfprin EC] 81 mg PO QDAY #30 tablet 09/03/20 10/11/20 1 Day Ago Rx ~10/10/20 81 mg Clopidogrel [Plavix] 75 mg PO QDAY #60 tablet 09/03/20 10/11/20 1 Day Ago Rx ~10/10/20 75 mg Ibuprofen [Motrin 800 MG tab] 800 mg PO Q8HR PRN #20 tablet 09/03/20 10/11/20 Unknown Rx Metformin HCl [metFORMIN] 1,000 mg PO BID #60 tablet 09/03/20 10/11/20 1 Day Ago Rx ~10/10/20 1000 MG cilostazoL [Pletal] 50 mg PO BID #60 tablet 09/03/20 10/11/20 1 Day Ago Rx ~10/10/20 50 mg traMADoL [Ultram 50 MG tab] 50 mg PO Q6HR PRN #10 tablet 09/03/20 10/11/20 2 Days Ago Rx ~10/09/20 Exam - Constitutional Vitals: Temp Pulse Resp BP Pulse Ox 99.3 F 108 H 18 117/95 99 10/10/20 15:00 10/10/20 15:00 10/10/20 18:34 10/10/20 15:00 10/10/20 15:00 General appearance: Present: no acute distress, well-nourished - EENT Eyes: Present: PERRL ENT: hearing intact, clear oral mucosa - Neck Neck: Present: supple, normal ROM - Respiratory Respiratory effort: normal Respiratory: bilateral: CTA - Cardiovascular Heart rate: 78 Rhythm: regular Heart Sounds: Present: S1 & S2. Absent: rub, click - Extremities Extremities: pulses symmetrical, No edema, abnormal (Ulcer between the right third and fifth toe) Extremity abnormal: other (Ulcer between the right third and fifth toe) Peripheral Pulses: within normal limits - Abdominal General gastrointestinal: Present: soft, non-tender, non-distended, normal bowel sounds Male genitourinary: Present: normal - Integumentary Integumentary: Present: clear, warm, dry - Musculoskeletal Musculoskeletal: gait normal, strength equal bilaterally - Psychiatric Psychiatric: appropriate mood/affect, intact judgment & insight - Neurologic Neurologic: CNII-XII intact, moves all extremities Results - Labs CBC & Chem 7: 10/11/20 07:01 10/10/20 17:46 Labs: Laboratory Last Values WBC 5.9 K/mm3 (4.5-11.0) 10/10/20 17:46 RBC 4.76 M/mm3 (3.65-5.03) 10/10/20 17:46 Hgb 13.9 gm/dl (11.8-15.2) 10/10/20 17:46 Hct 41.4 % (35.5-45.6) 10/10/20 17:46 MCV 87 fl (84-94) 10/10/20 17:46 MCH 29 pg (28-32) 10/10/20 17:46 MCHC 34 % (32-34) 10/10/20 17:46 RDW 14.5 % (13.2-15.2) 10/10/20 17:46 Plt Count 255 K/mm3 (140-440) 10/10/20 17:46 Lymph % (Auto) 26.1 % (13.4-35.0) 10/10/20 17:46 [place] % (Auto) 8.5 % (0.0-7.3) H 10/10/20 17:46 Eos % (Auto) 1.4 % (0.0-4.3) 10/10/20 17:46 Baso % (Auto) 0.3 % (0.0-1.8) 10/10/20 17:46 Lymph # (Auto) 1.5 K/mm3 (1.2-5.4) 10/10/20 17:46 [place] # (Auto) 0.5 K/mm3 (0.0-0.8) 10/10/20 17:46 Eos # (Auto) 0.1 K/mm3 (0.0-0.4) 10/10/20 17:46 Baso # (Auto) 0.0 K/mm3 (0.0-0.1) 10/10/20 17:46 Seg Neutrophils % 63.7 % (40.0-70.0) 10/10/20 17:46 Seg Neutrophils # 3.7 K/mm3 (1.8-7.7) 10/10/20 17:46 Sodium 139 mmol/L (137-145) 10/10/20 17:46 Potassium 3.7 mmol/L (3.6-5.0) 10/10/20 17:46 Chloride 104.3 mmol/L (98-107) 10/10/20 17:46 Carbon Dioxide 24 mmol/L (22-30) 10/10/20 17:46 Anion Gap 14 mmol/L 10/10/20 17:46 BUN 12 mg/dL (9-20) 10/10/20 17:46 Creatinine 0.8 mg/dL (0.8-1.3) 10/10/20 17:46 Estimated GFR > 60 ml/min 10/10/20 17:46 BUN/Creatinine Ratio 15 % 10/10/20 17:46 Glucose 154 mg/dL (75-100) H 10/10/20 17:46 Lactic Acid 1.60 mmol/L (0.7-2.0) 10/10/20 17:46 Calcium 9.1 mg/dL (8.4-10.2) 10/10/20 17:46 Total Bilirubin 0.70 mg/dL (0.1-1.2) 10/10/20 17:46 AST 13 units/L (5-40) 10/10/20 17:46 ALT 15 units/L (7-56) 10/10/20 17:46 Alkaline Phosphatase 91 units/L (35-129) 10/10/20 17:46 Total Protein 7.7 g/dL (6.3-8.2) 10/10/20 17:46 Albumin 4.1 g/dL (3.9-5) 10/10/20 17:46 Albumin/Globulin Ratio 1.1 % 10/10/20 17:46 - Imaging and Cardiology Imaging and Cardiology: Right foot x-ray Postoperative changes with amputation of the fourth toe just distal to the proximal phalanx. Small irregularity in the cortex in this area however this may be postoperative. Remaining MTP joints and IP joints appear normal. If there is concern for osteomyelitis MRI is recommended. Assessment and Plan Advance Directives: Yes (Full code) VTE prophylaxis?: Chemical Plan of care discussed with patient/family: Yes - Patient Problems (1) Non-healing wound of amputation stump Current Visit: Yes Status: Acute Plan to address problem: The wound between the right third toe and fifth toe is nonhealing and has signs of infection IV Unasyn and vancomycin for now Vascular/IR surgery consult. Wound care. (2) Peripheral arterial disease Current Visit: Yes Status: Chronic Plan to address problem: Continue Pletal. (3) Coronary artery disease Current Visit: Yes Status: Acute Qualifiers: Coronary Disease-Associated Artery/Lesion type: [place] artery [place] vs. transplanted heart: [place] heart Associated angina: without angina Qualified Code(s): I25.10 - Atherosclerotic heart disease of [place] coronary artery without angina pectoris Plan to address problem: Continue Plavix. (4) Insulin dependent diabetes mellitus Current Visit: Yes Status: Acute Plan to address problem: Poorly controlled diabetes Patient needs to be on insulin which was initiated. Patient also to continue Metformin as is her creatinine is normal And hemoglobin A1c was 9.1 and August (5) Nicotine dependence Current Visit: Yes Status: Chronic Qualifiers: Nicotine product type: cigarettes Plan to address problem: Patient strongly counseled about stopping smoking NicoDerm patch was initiated (6) DVT prophylaxis Current Visit: Yes Status: Acute Plan to address problem: On heparin and GI prophylaxis
[2020-10-10] MEDS ORDERED: ACETAMINOPHEN 325 MG TAB PO PRN (23:00)
[2020-10-10] MEDS ORDERED: MORPHINE 2 MG/1 ML INJ IV PRN (23:00)
[2020-10-10] MEDS ORDERED: traMADol 50 MG TAB PO PRN (23:00)
[2020-10-10] MEDS ORDERED: METOCLOPRAMIDE 10 MG/2 ML INJ IV PRN (23:00)
[2020-10-11] MEDS: AMPICILLIN/SULBACTA 3GM/100ML 3 GM/100 ML BAG IV SCH ×2 (06:47→12:00)
[2020-10-11 07:37] LABS: Basophils % (Auto) 0.3 % (0.0-1.8); Eosinophils # (Auto) 0.1 K/mm3 (0.0-0.4); Eosinophils % (Auto) 2.3 % (0.0-4.3); Hematocrit 36.6 % (35.5-45.6); Hemoglobin 12.3 gm/dl (11.8-15.2); Lymphocytes # (Auto) 1.4 K/mm3 (1.2-5.4); Lymphocytes % (Auto) 21.1 % (13.4-35.0); Mean Corpuscular HGB Conc 34 % (32-34); Mean Corpuscular Volume 87 fl (84-94); Monocytes # (Auto) 0.6 K/mm3 (0.0-0.8); Monocytes % (Auto) 9.6 % (0.0-7.3); Platelet Count 217 K/mm3 (140-440); Red Blood Count 4.21 M/mm3 (3.65-5.03); Red Cell Distribution Width 14.6 % (13.2-15.2)
[2020-10-11 07:52] LABS: Alanine Aminotransferase 12 units/L (7-56); Albumin 3.7 g/dL (3.9-5); BUN/Creatinine Ratio 14; Blood Urea Nitrogen 15 mg/dL (9-20); Calcium 8.9 mg/dL (8.4-10.2); Hemolysis Index 3
[2020-10-11] MEDS: SODIUM CHLORIDE 0.9% 1000 ML 1,000 ML IV SCH (08:47)
[2020-10-11] MEDS: VANCOMYCIN/NS 1 GM/250 ML 1 GM/250 ML BAG IV SCH ×2 (08:47→20:56)
--- NOTE | 2020-10-11 09:21 | Consultation ---
History of Present Illness - Reason for Consult Consult date: 10/11/20 Patient with a history of peripheral vascular disease - History of Present Illness Patient with a history of peripheral vascular disease with prior right fourth toe amputation. He presented complaining of drainage from his amputation site. The patient's amputation site demonstrates fibrinous material. His sutures are still present despite his amputation 4 to 5 weeks ago. He has not sought wound care or follow-up clinic visits since his discharge. He complains of a minimal amount of pain from the amputation bed. His foot is warm and well perfused. Additionally, the patient is complaining of some shortness of breath. Past History Past Medical History: PVD Past Surgical History: Other (Right fourth toe amputation) Social history: no significant social history Family history: no significant family history Medications and Allergies Allergies Allergy/AdvReac Type Severity Reaction Status Date / Time No Known Allergies Allergy Verified 10/10/20 14:56 Home Medications Medication Instructions Recorded Confirmed Last Taken Type oxyCODONE /ACETAMINOPHEN [Percocet 1 tab PO Q6HR PRN #12 tablet 08/14/20 2 Days Ago Rx 5/325 mg] ~10/09/20 Aspirin EC [Halfprin EC] 81 mg PO QDAY #30 tablet 09/03/20 10/11/20 1 Day Ago Rx ~10/10/20 81 mg Clopidogrel [Plavix] 75 mg PO QDAY #60 tablet 09/03/20 10/11/20 1 Day Ago Rx ~10/10/20 75 mg Ibuprofen [Motrin 800 MG tab] 800 mg PO Q8HR PRN #20 tablet 09/03/20 10/11/20 Unknown Rx Metformin HCl [metFORMIN] 1,000 mg PO BID #60 tablet 09/03/20 10/11/20 1 Day Ago Rx ~10/10/20 1000 MG cilostazoL [Pletal] 50 mg PO BID #60 tablet 09/03/20 10/11/20 1 Day Ago Rx ~10/10/20 50 mg traMADoL [Ultram 50 MG tab] 50 mg PO Q6HR PRN #10 tablet 09/03/20 10/11/20 2 Days Ago Rx ~10/09/20 Active Meds: Active Medications Acetaminophen (Acetaminophen 325 Mg Tab) 650 mg PO Q4H PRN PRN Reason: Pain MILD(1-3)/Fever >100.5/[place] Aspirin (Aspirin Ec 81 Mg Tab) 81 mg PO QDAY [facility] Cilostazol (Cilostazol 100 Mg Tab) 50 mg PO BID [facility] Clopidogrel Bisulfate (Clopidogrel 75 Mg Tab) 75 mg PO QDAY [facility] Famotidine (Famotidine 20 Mg Tab) 20 mg PO BID [facility] Heparin Sodium (Porcine) (Heparin 5,000 Unit/1 Ml Vial) 5,000 unit SUB-Q Q12HR [facility] Hydromorphone HCl (Hydromorphone 1 Mg/1 Ml Inj) 0.5 mg IV Q3H PRN PRN Reason: Pain , Severe (7-10) Sodium Chloride (Nacl 0.9% 1000 Ml) 1,000 mls @ 75 mls/hr IV DIRECT NOAH Last Admin: 10/11/20 08:47 Dose: 75 mls/hr Documented by: Ampicillin Sodium/Sulbactam Sodium (Unasyn/Ns 3 Gm/100 Ml) 3 gm in 100 mls @ 100 mls/hr IV Q6HR [facility]; Protocol Last Admin: 10/11/20 06:47 Dose: 100 mls/hr Documented by: Vancomycin HCl (Vancomycin/Ns 1 Gm/250 Ml) 1 gm in 250 mls @ 250 mls/hr IV Q12H [facility] Last Admin: 10/11/20 08:47 Dose: 250 mls/hr Documented by: Metoclopramide HCl (Metoclopramide 10 Mg/2 Ml Inj) 10 mg IV Q6H PRN PRN Reason: Nausea And Vomiting Morphine Sulfate (Morphine 2 Mg/1 Ml Inj) 2 mg IV Q4H PRN PRN Reason: Pain, Moderate (4-6) Nicotine (Nicotine 14 Mg/24 Hr Patch) 14 mg TD QDAY [facility] Ondansetron HCl (Ondansetron 4 Mg/2 Ml Inj) 4 mg IV Q8H PRN PRN Reason: Nausea And Vomiting Sodium Chloride (Sodium Chloride 0.9% 10 Ml Flush Syringe) 10 ml IV BID [facility] Sodium Chloride (Sodium Chloride 0.9% 10 Ml Flush Syringe) 10 ml IV PRN PRN PRN Reason: LINE FLUSH Tramadol HCl (Tramadol 50 Mg Tab) 50 mg PO Q6HR PRN PRN Reason: PAIN (1-4) Review of Systems All systems: negative Respiratory: shortness of breath Exam - Constitutional Vitals: Temp Pulse Resp BP Pulse Ox 98.4 F 77 17 127/83 98 10/11/20 03:45 10/11/20 03:45 10/11/20 03:45 10/11/20 03:45 10/11/20 03:45 General appearance: Present: no acute distress - EENT Eyes: Present: EOM intact ENT: hearing intact - Neck Neck: Present: normal ROM - Respiratory Respiratory effort: normal - Extremities Extremities: abnormal - Abdominal General gastrointestinal: Present: deferred Male genitourinary: Present: deferred - Rectal Rectal Exam: deferred - Psychiatric Psychiatric: appropriate mood/affect, cooperative Results - Labs CBC & Chem 7: 10/11/20 07:01 10/11/20 07:01 Labs: Abnormal lab results 10/10/20 10/10/20 10/11/20 Range/Units 17:46 17:46 07:01 [place] % (Auto) 8.5 H 9.6 H (0.0-7.3) % Glucose 154 H (75-100) mg/dL Hemoglobin A1c (4-6) % Albumin (3.9-5) g/dL 10/11/20 10/11/20 Range/Units 07:01 07:01 [place] % (Auto) (0.0-7.3) % Glucose 171 H (75-100) mg/dL Hemoglobin A1c 7.6 H (4-6) % Albumin 3.7 L (3.9-5) g/dL Assessment and Plan Patient with a history of right fourth toe amputation. He will need wound care for debridement and to follow-up to allow his wound to heal. Will order a arterial duplex of the patient's leg to document that he has adequate inflow to heal his wound. Following arrangements for wound care, the patient can likely be discharged home.
[2020-10-11] MEDS ORDERED: FAMOTIDINE 20 MG/2 ML INJ IV SCH (10:00)
[2020-10-11] MEDS: ASPIRIN EC 81 MG TAB PO SCH (10:18)
[2020-10-11] MEDS: NICOTINE 14 MG/24 HR PATCH TD SCH ×2 (10:18→11:23)
[2020-10-11] MEDS: FAMOTIDINE 20 MG TAB PO SCH ×2 (10:18→21:14)
[2020-10-11] MEDS: HEPARIN 5,000 UNIT/1 ML VIAL SUB-Q SCH ×2 (10:19→21:14)
[2020-10-11] MEDS: CLOPIDOGREL 75 MG TAB PO SCH (10:19)
[2020-10-11] MEDS: HYDROmorphone 1 MG/1 ML INJ IV PRN ×2 (11:32→20:51)
[2020-10-11] MEDS: CILOSTAZOL 100 MG TAB PO SCH ×2 (13:52→21:13)
[2020-10-11] MEDS: ONDANSETRON 4 MG/2 ML INJ IV PRN (13:57)
--- NOTE | 2020-10-11 14:41 | Vascular Lab Report ---
DUPLEX DOPPLER LOWER EXTREMITY ARTERIAL, BILATERAL INDICATION / CLINICAL INFORMATION: PVD with right toe amputation. hx of pvd,ble vascular surgery, alecia samanthaes,smoker.. TECHNIQUE: Arterial duplex examination of both lower extremities performed using B-mode, color flow a nd spectral Doppler assessment. FINDINGS: RIGHT: - Atherosclerotic Plaque: No significant atherosclerotic plaque. - Elevated Velocity (>200 cm/s): None. - Abnormal Waveform: None. LEFT: - Atherosclerotic Plaque: Severe. Posterior tibial artery - Elevated Velocity (>200 cm/s): None. - Abnormal Waveform: There is abnormal waveform of the anterior tibial and dorsalis pedis arteries ADDITIONAL FINDINGS: None. Right SHANA: 1.22 Left SHANA: 0.63 IMPRESSION: 1. Moderate peripheral artery disease of the left lower extremity. 2. Heavily calcified left posterior tibial artery Ankle-Brachial Index (SHANA): - Calcified arteries > 1.4 - Normal = 0.9-1.4 - Mild PAD = 0.7-0.89 - Moderate PAD = 0.51-0.69 - Severe PAD < 0.5 Doppler Waveform: - Triphasic is normal. - Biphasic is abnormal if clear transition from triphasic signal along vascular tree. - Monophasic is abnormal. Signer Name: Duc La DO Signed: 10/11/2020 2:36 PM Workstation Name: [employer]
--- NOTE | 2020-10-11 15:14 | Progress Note ---
Assessment and Plan - Patient Problems (1) Coronary artery disease Current Visit: Yes Status: Acute Qualifiers: Coronary Disease-Associated Artery/Lesion type: [place] artery [place] vs. transplanted heart: [place] heart Associated angina: without angina Qualified Code(s): I25.10 - Atherosclerotic heart disease of [place] coronary artery without angina pectoris Plan to address problem: At present currently chest pain-free no shortness of breath no chest pain no dyspnea on exertion orthopnea or PND. (2) Foot ulcer Current Visit: Yes Status: Acute Qualifiers: Laterality: right Non-pressure ulcer stage: unspecified non-pressure ulcer stage Qualified Code(s): L97.519 - Non-pressure chronic ulcer of other part of right foot with unspecified severity Plan to address problem: Patient to be transferred to the OR to have debridement by vascular. Plan discharge home in a.m. Follow-up wound clinic. Follow-up vascular. (3) Insulin dependent diabetes mellitus Current Visit: Yes Status: Acute Plan to address problem: Current Accu-Cheks stable. We will add sliding scale insulin. (4) Non-healing wound of amputation stump Current Visit: Yes Status: Acute Plan to address problem: Spoke to patient about compliance and following up with vascular surgeon and wound clinic. Patient understands (5) Nicotine dependence Current Visit: Yes Status: Chronic Qualifiers: Nicotine product type: cigarettes Plan to address problem: Smoking cessation will also help with peripheral vascular disease. Arterial Doppler has been obtained. (6) Peripheral arterial disease Current Visit: Yes Status: Chronic Plan to address problem: Await arterial Doppler findings prior to discharge. Subjective Date of service: 10/11/20 Principal diagnosis: Fourth toe amputation cellulitis Interval history: Patient 55-year-old male with a history of peripheral vascular disease status post fourth toe amputation. Appears to have lost follow-up after amputation. Had suture site still in the area fibrinous drainage from toe. Patient admitted today to have wound debridement. Patient after debridement will have follow-up to the wound clinic for ongoing local wound treatment. Objective - Constitutional Vitals: Vital Signs - 12hr 10/11/20 10/11/20 10/11/20 03:45 11:32 11:39 Temperature 98.4 F 98.1 F Pulse Rate 77 99 H Respiratory 17 20 22 Rate Blood Pressure 142/83 Blood Pressure 127/83 [Left] O2 Sat by Pulse 98 99 Oximetry General appearance: Present: no acute distress, well-nourished - EENT Eyes: PERRL, EOM intact ENT: hearing intact, clear oral mucosa Ears: bilateral: normal - Neck Neck: supple, normal ROM - Respiratory Respiratory effort: normal Respiratory: bilateral: CTA - Breasts Breasts: normal - Cardiovascular Rhythm: regular Heart Sounds: Present: S1 & S2. Absent: gallop, rub Extremities: pulses intact, No edema, normal color, Full ROM Extremity abnormal: other (Fourth toe digit amputation. Serosanguineous drainage sutures minimal erythema. Minimal pain) - Gastrointestinal General gastrointestinal: Present: soft, non-tender, non-distended, normal bowel sounds - Genitourinary Male genitourinary: normal - Integumentary Integumentary: clear, warm, dry - Musculoskeletal Musculoskeletal: 1, strength equal bilaterally - Neurologic Neurologic: moves all extremities - Psychiatric Psychiatric: memory intact, appropriate mood/affect, intact judgment & insight - Labs CBC & Chem 7: 10/11/20 07:01 10/11/20 07:01 Labs: Abnormal lab results 10/10/20 10/10/20 10/11/20 Range/Units 17:46 17:46 07:01 [place] % (Auto) 8.5 H 9.6 H (0.0-7.3) % Glucose 154 H (75-100) mg/dL POC Glucose (70-105) mg/dL Hemoglobin A1c (4-6) % Albumin (3.9-5) g/dL 10/11/20 10/11/20 10/11/20 Range/Units 07:01 07:01 11:38 [place] % (Auto) (0.0-7.3) % Glucose 171 H (75-100) mg/dL POC Glucose 167 H (70-105) mg/dL Hemoglobin A1c 7.6 H (4-6) % Albumin 3.7 L (3.9-5) g/dL
[2020-10-12] MEDS: AMPICILLIN/SULBACTA 3GM/100ML 3 GM/100 ML BAG IV SCH ×3 (01:12→05:10)
[2020-10-12] MEDS: SODIUM CHLORIDE 0.9% 1000 ML 1,000 ML IV SCH (05:10)
--- NOTE | 2020-10-12 08:15 | Discharge Summary ---
Providers - Providers Date of Admission: 10/10/20 19:01 Date of discharge: 10/12/20 Attending physician: DEMARIO ANGELES 10/10/20 23:00 Consult to Physician [CONS] Routine Comment: Consulting Provider: JOSE LOO Physician Instructions: Reason For Exam: Right foot ulcer, peripheral arterial disease 10/11/20 11:03 Physical Therapy Evaluation and Treat [CONS] Stat Comment: Debility Reason For Exam: Physical Therapy Eval & Treat 10/11/20 11:04 Occupational Therapy Evaluate and Treat [CONS] Stat Comment: Eval and Treat Reason For Exam: Occupational Therapy 10/11/20 13:17 Consult to Wound/ET Nurse [CONS] Urgent Reason For Exam: wound eval Primary care physician: MARKET SUPERINTENDENT Hospitalization Condition: Good Pertinent studies: SHANA left leg 0.63 right leg normal 1.22 Arterial Doppler moderate PVD left leg heavy calcification posterior tibial Foot x-ray postop changes of amputation fourth digit other metatarsals normal Hospital course: Patient had debridement of previous amputation area did well. Stable for discharge patient discussed about importance of follow-up. Disposition: TO HOME OR SELFCARE Final Discharge Diagnosis (Prints w/discharge instructions): Infected gangrenous foot - Discharge Diagnoses (1) Coronary artery disease Status: Acute Qualifiers: Coronary Disease-Associated Artery/Lesion type: [place] artery [place] vs. transplanted heart: [place] heart Associated angina: without angina Qualified Code(s): I25.10 - Atherosclerotic heart disease of [place] coronary artery without angina pectoris Comment: Remained chest pain-free throughout hospital stay smoking cessation (2) Foot ulcer Status: Acute Qualifiers: Laterality: right Non-pressure ulcer stage: unspecified non-pressure ulcer stage Qualified Code(s): L97.519 - Non-pressure chronic ulcer of other part of right foot with unspecified severity Comment: Area of fourth digit amputation. Minimal drainage looks good. (3) Insulin dependent diabetes mellitus Status: Acute Comment: Optimal control of diabetes. Aggressive control of diabetes. (4) Non-healing wound of amputation stump Status: Acute (5) Nicotine dependence Status: Chronic Qualifiers: Nicotine product type: cigarettes (6) Peripheral arterial disease Status: Chronic Core Measure Documentation - Palliative Care Palliative Care/ Comfort Measures: Not Applicable - Core Measures Any of the following diagnoses?: none Exam - Constitutional Vitals: Temp Pulse Resp BP Pulse Ox 98.2 F 88 18 125/75 97 10/12/20 04:06 10/12/20 04:06 10/12/20 04:06 10/12/20 04:06 10/12/20 04:06 General appearance: Present: no acute distress, well-nourished - EENT Eyes: Present: PERRL ENT: hearing intact, clear oral mucosa - Neck Neck: Present: supple, normal ROM - Respiratory Respiratory effort: normal Respiratory: bilateral: CTA - Cardiovascular Heart Sounds: Present: S1 & S2. Absent: rub, click - Extremities Extremities: pulses symmetrical, No edema Peripheral Pulses: within normal limits - Abdominal General gastrointestinal: Present: soft, non-tender, non-distended, normal bowel sounds Male genitourinary: Present: normal - Integumentary Integumentary: Present: clear, warm, dry - Musculoskeletal Musculoskeletal: gait normal, strength equal bilaterally - Psychiatric Psychiatric: appropriate mood/affect, intact judgment & insight - Neurologic Neurologic: CNII-XII intact, moves all extremities Plan Activity: no restrictions Weight Bearing Status: Weight Bear as Tolerated Diet: diabetic Follow up with: PRIMARY CARE, [Primary Care Provider] - 3-5 Days Prescriptions: oxyCODONE /ACETAMINOPHEN [Percocet 5/325 mg] 1 tab PO Q6HR PRN #60 tablet PRN Reason: Pain
[2020-10-12] MEDS: FAMOTIDINE 20 MG TAB PO SCH (09:34)
[2020-10-12] MEDS: ONDANSETRON 4 MG/2 ML INJ IV PRN (09:34)
[2020-10-12] MEDS: ASPIRIN EC 81 MG TAB PO SCH (09:34)
[2020-10-12] MEDS: CLOPIDOGREL 75 MG TAB PO SCH (09:34)
[2020-10-12] MEDS: HEPARIN 5,000 UNIT/1 ML VIAL SUB-Q SCH (09:35)
[2020-10-12] MEDS: NICOTINE 14 MG/24 HR PATCH TD SCH (11:37)
[2020-10-12 12:16] LABS: BUN/Creatinine Ratio 10; Blood Urea Nitrogen 13 mg/dL (9-20); Hemolysis Index 1
[2020-10-12 13:03] VITALS: BP 147/74
== END 2020-10-12 17:07 | disposition home or self-care (01) ==
LOC: ED 14:17 → 3A 19:01
PROVIDERS: ADMIT Internal Medicine; ATTEND Internal Medicine
DX: L97.519 Non-pressure chronic ulcer of other part of right foot with unspecified severity (principal); T87.9 Unspecified complications of amputation stump; I73.9 Peripheral vascular disease, unspecified; I25.10 Atherosclerotic heart disease of native coronary artery without angina pectoris; E11.9 Type 2 diabetes mellitus without complications; M79.89 Other specified soft tissue disorders; F17.210 Nicotine dependence, cigarettes, uncomplicated; Z79.02 Long term (current) use of antithrombotics/antiplatelets; Z79.82 Long term (current) use of aspirin; Z79.84 Long term (current) use of oral hypoglycemic drugs
CPT/HCPCS: 36415; 73630; 80048; 80053; 80202; 82140; 82962; 83036; 85025; 93922; 93925; 96365; 96366; 96367; 96372; 96375; 96376; 97165; 99284; G0378; J0295; J1170; J1644; J2405; J2543; J2765; J3370; J7030; J7040